=== PATIENT | male | born 1940 | race Caucasian/White ===

== ENCOUNTER 2019-11-22 13:31 | Outpatient (CLI) | payer OTHER, SELFPAY ==
--- NOTE | 2019-11-22 13:37 | CT_ITS ---
WS: [id number] CT ABDOMEN AND PELVIS NONCONTRAST HISTORY: CHRONIC KIDNEY DISEASE TECHNIQUE: Imaging performed through the abdomen and pelvis. Coronal and sagittal reformats are submi tted. All CT scans at [facility] use at least one of these dose optimization techniques: automated exposure control; mA and/or kV adjustment per patient size (includes targeted exams where d ose is matched to clinical indication); or iterative reconstruction. DLP: 1115.26 mGycm COMPARISON: Renal ultrasound 10/06/2019. Lower thorax: Mild dependent changes at the lung bases. Mild enlargement of the heart chambers. Liver: Normal, no mass or intrahepatic dilatation. Gallbladder: Prior cholecystectomy. Pancreas: Normal. Spleen: Normal. Adrenal glands: Normal. Right kidney: Normal size kidney with mild perinephric stranding. No mass, obstruction or calcificati on. Left kidney: Normal size kidney with perinephric stranding. No mass or obstruction. 5.3 mm calcificat ion is nonobstructing in the lower pole. There is an additional calcification measuring 10 x 8 mm in the proximal LEFT ureter. Not causing a significant obstruction at this time. Mild atherosclerosis with no aneurysm. No free fluid, intraperitoneal air or significant lymphadenopathy. GI tract: Normal appendix. There are a few scattered diverticula with no evidence for an acute divert iculitis. Abdominal wall: Intact. Pelvis: Diffuse wall thickening involving the urinary bladder. May be due to cystitis or chronic outl et obstruction. Penile implant with reservoir. No free fluid or adenopathy. Osseous structures: Severe degenerative disc disease at L5-S1. CT/CT abdomen pelvis wo con [id number] IMPRESSION: 1. Proximal LEFT ureteral calcification measures 10 x 8 mm without significant obstruction. Suggest urological consultation as a calcification of the size wi ll likely cause significant obstruction. 2. Bilateral perinephric stranding. 3. Nonobstructing indication lower pole LEFT kidney. 4. Penile reservoir in the RIGHT pelvis corresponds to the fluid collection se en on the recent ultrasound. 5. Diffuse bladder wall thickening probably related to cystitis or chronic out let obstruction. 6. Prior cholecystectomy.
== END 2019-11-22 13:32 | disposition home or self-care (01) ==
LOC: RADWPI 13:36
PROVIDERS: Family Provider Family Medicine; PCP Nurse Practitioner; Referring Provider Nurse Practitioner; Visit Provider Nurse Practitioner
DX: N18.3 Chronic kidney disease, stage 3 (moderate) (principal); N20.2 Calculus of kidney with calculus of ureter; Z90.49 Acquired absence of other specified parts of digestive tract
CPT/HCPCS: 74176

== ENCOUNTER 2019-12-07 07:50 | Outpatient (CLI) | payer OTHER, SELFPAY ==
--- NOTE | 2019-12-07 07:30 | XR_ITS ---
WS: [id number] ABDOMEN: SUPINE FILM HISTORY: LEFT RENAL/URETERAL CALCULUS COMPARISON: 11/22/2019 Prior cholecystectomy. Spondylitic changes in the lumbar spine. Dense calcifications in the splenic a rtery. Right kidney: No renal or ureteral stone identified. Left kidney: Recently described calcification in the proximal LEFT ureter is not definitely identifie d. 2 calcifications now overlie the lower pole of the LEFT kidney with the largest measuring 11.4 mm. The second calcification may be the calcification previously described in the proximal LEFT ureter w hich has gone retrograde. Smaller calcification measures 6.2 mm lower pole LEFT kidney. XR/XR KUB [id number] IMPRESSION: 1. 2 calcifications overlying the lower pole of the LEFT kidney. Suspect the l arger calcification is the calcification recently described in the proximal LEF T ureter which has gone retrograde. Largest calcification is ovoid measuring 11 .4 mm. 2. Small calcification lower pole LEFT kidney 6.2 mm.
== END 2019-12-07 07:51 | disposition home or self-care (01) ==
PROVIDERS: Family Provider Family Medicine; PCP Nurse Practitioner; Visit Provider Urology
DX: N20.2 Calculus of kidney with calculus of ureter (principal)
CPT/HCPCS: 74018; 81001; 87077; 87086; 87186

== ENCOUNTER 2020-06-13 11:45 | Outpatient (CLI) | payer OTHER, SELFPAY ==
--- NOTE | 2020-06-13 11:51 | XRR_ITS ---
PROCEDURE INFORMATION: Exam: XR Abdomen, 1 View Exam date and time: 06/13/2020 12:03 PM Age: 80 years old Clinical indication: Condition or disease; Kidney or ureter condition; Calculus (stone) in ureter; Patient HX: HX ureteral stone. Check up. Previous XR 12/07/19 TECHNIQUE: Imaging protocol: XR of the abdomen. Views: Frontal supine view of the abdomen. 1 View. COMPARISON: CR XR KUB [id number] 12/07/2019 8:21 AM FINDINGS: Gastrointestinal tract: The bowel gas pattern is nonspecific. Air filled large bowel including distal rectal gas. Organs: 4 mm renal calcification overlies the lower pole the left kidney. Calcification of 10 mm adjacent to the transverse process of L3 on the left likely ureteric in origin. Similar appearance was noted on the CT dated 11-22-19. Bones/joints: See Organs finding. XR/XR KUB [id number] IMPRESSION: 1. The bowel gas pattern is nonspecific. Air filled large bowel including distal rectal gas. 2. 4 mm renal calcification overlies the lower pole the left kidney. Calcification of 10 mm adjacent to the transverse process of L3 on the left likely ureteric in origin. Similar appearance was noted on the CT dated 11-22-19.
== END 2020-06-13 11:46 | disposition home or self-care (01) ==
PROVIDERS: Family Provider Family Medicine; PCP Nurse Practitioner; Visit Provider Urology
DX: N20.1 Calculus of ureter (principal); N20.0 Calculus of kidney
CPT/HCPCS: 74018; 81001

== ENCOUNTER 2020-06-21 10:13 | Outpatient (CLI) | payer OTHER, SELFPAY ==
--- NOTE | 2020-06-21 11:45 | US_ITS ---
WS: [id number] ULTRASOUND RENAL TECHNIQUE: Ultrasound examination of both kidneys. CLINICAL INFORMATION: Stones COMPARISON: October 06, 2019 FINDINGS: RIGHT: Right kidney is normal in size and appearance. Echogenicity: Normal. Cortical thickness: 1.6 cm; Normal. Hydronephrosis: None. Perinephric fluid: None. Right kidney measures: 10.4 cm x 5.9 cm x 5.3 cm. LEFT: Left kidney is normal in size and appearance. Echogenicity: Normal. Cortical thickness: 1.6 cm; Normal. Hydronephrosis: None. Perinephric fluid: None. Left kidney measures: 10.8 cm x 5.8 cm x 6.0 cm. Normal visualized aorta. Small bladder diverticulum measuring 2.2 x 1.4 x 1.1 cm. Penile pump reservo ir. US/US renal BI* [id number] IMPRESSION: 1. No hydronephrosis in either kidney. 2. Right penile pump reservoir adjacent to the bladder. 3. Small bladder diverticulum measuring 2.2 x 1.4 x 1.1 cm
--- NOTE | 2020-06-21 12:15 | XR_ITS ---
WS: [id number] KUB, 06/21/2020 Clinical Data: Stones Comparison: KUB, 06/13/2020. Findings: There is a calcification inferior pole of the left kidney. The calcification noted adjacent to the le ft L3 transverse process is not seen on this exam. There is blurring of the bowel from intrinsic alexandru l peristalsis. The patient has a penile artery implants. XR/XR KUB [id number] Impression: 1. Calcification overlying the inferior pole left kidney. 2. Calcification adjacent to the left L3 transverse process not seen on this ex am.
== END 2020-06-21 10:14 | disposition home or self-care (01) ==
PROVIDERS: Family Provider Family Medicine; PCP Nurse Practitioner; Visit Provider Urology
DX: N20.0 Calculus of kidney (principal); Z96.0 Presence of urogenital implants; N32.3 Diverticulum of bladder
CPT/HCPCS: 74018; 76770; 81001

== ENCOUNTER 2020-08-07 12:32 | Outpatient (CLI) | payer OTHER, SELFPAY ==
--- NOTE | 2020-08-07 12:38 | XRR_ITS ---
PROCEDURE INFORMATION: Exam: XR Abdomen, 1 View Exam date and time: 08/07/2020 12:38 PM Age: 80 years old Clinical indication: Condition or disease; Kidney or ureter condition; Calculus (stone) in kidney; Prior surgery; Surgery type: Gb TECHNIQUE: Imaging protocol: XR of the abdomen. Views: Frontal supine view of the abdomen. 1 View. COMPARISON: CR XR KUB [id number] 06/21/2020 10:32 AM FINDINGS: Tubes, catheters and devices: Incidentally noted is evidence of penile implant Gastrointestinal tract: Normal. No bowel dilation. Evidence of cholecystectomy is seen. Organs: There is a calcified urinary tract stone in the central collecting system of the left kidney. This finding measures 6.3 mm. This finding was present on prior examination and at that time measured 12.2 mm. Bones/joints: Mild osteoarthritis lumbar spine XR/XR KUB [id number] IMPRESSION: 1. No acute GI abnormality. 2. Caliceal stone left kidney decreased size since prior 3. Penile implant 4. Cholecystectomy
== END 2020-08-07 12:33 | disposition home or self-care (01) ==
LOC: RAD 12:36
PROVIDERS: PCP Nurse Practitioner; Visit Provider Nurse Practitioner Family
DX: N20.0 Calculus of kidney (principal); Z96.89 Presence of other specified functional implants
CPT/HCPCS: 74018

== ENCOUNTER 2020-10-06 14:04 | Outpatient (CLI) | payer OTHER, SELFPAY ==
--- NOTE | 2020-10-06 14:15 | USCV_ITS ---
Melissa Sivakumar Age: 80 Gender: M : 1940 Exam Date: 10/06/2020 14:35 Ordering Phys: Sudhir Coughlin MD Technologist: Alecia Lema [place] [facility] [place]: [place] BP: / HR: 74 Rhythm: Sinus Technical Quality: MEASUREMENTS (Male / Female) Normal Values 2D ECHO LV Diastolic Diameter PLAX 4.8 cm 4.2 - 5.9 / 3.9 - 5.3 cm LV Systolic Diameter PLAX 2.5 cm IVS Diastolic Thickness 1.3 cm 0.6 - 1.0 / 0.6 - 0.9 cm IVS Systolic Thickness 1.8 cm LVPW Diastolic Thickness 1.0 cm 0.6 - 1.0 / 0.6 - 0.9 cm LVPW Systolic Thickness 2.1 cm LVOT Diameter 2.0 cm LV Ejection Fraction 2D Teich 79.2 % LV Ejection Fraction MOD 2C 65.6 % LV Ejection Fraction 2C AL 66.0 % LA Diameter 4.2 cm LA Width 3.7 cm LA Height 4.8 cm RA Width 3.1 cm RA Height 4.7 cm Aorta at Sinotubular Diameter 3.9 cm M-MODE LV Diastolic Diameter MM 6.8 cm 4.2 - 5.9 / 3.9 - 5.3 cm LV Systolic Diameter MM 3.0 cm LV Ejection Fraction MM Teich 84.8 % IVS Diastolic Thickness MM 1.2 cm 0.6 - 1.0 / 0.6 - 0.9 cm IVS Systolic Thickness MM 2.3 cm LVPW Diastolic Thickness MM 1.2 cm 0.6 - 1.0 / 0.6 - 0.9 cm LVPW Systolic Thickness MM 1.9 cm Aortic Annulus Diameter 3.0 cm LA Ao Ratio MM 1.5 MV E Point Septal Separation 0.7 cm DOPPLER AV Peak Velocity 122.0 cm/s LVOT Peak Velocity 112.0 cm/s AV Area Cont Eq vti 3.0 cm squared AV Area Cont Eq pk 2.9 cm squared MV Peak Velocity 100.0 cm/s MV Area PHT 2.7 cm squared Mitral E to A Ratio 0.7 MV E' Velocity 34.0 cm/s Mitral E to MV E' Ratio 14.0 Mitral E to LV E' Lateral Ratio 15.7 Mitral E to LV E' Septal Ratio 12.6 TR Peak Velocity 80.7 cm/s TR Peak Gradient 2.6 mmHg Right Atrial Pressure 3.0 mmHg Pulmonary Artery Systolic Pressu 5.6 mmHg PV Peak Velocity 79.0 cm/s RV Acceleration Time 0.1 s RV Ejection Time 0.3 s RV AcT/ET 0.4 FINDINGS Left Ventricle Normal left ventricular cavity size. Normal left ventricular systolic function. Left ventricular ejection fraction is estimated at 55 %. Grade I/IV diastolic dysfunction (abnormal relaxation filling pattern), normal to mildly elevated filling pressures. Due to foreshortening of left ventricle, estimation of ejection fraction may not be accurate. Right Ventricle The right ventricle is normal in size and function. Right Atrium The right atrium is normal in size. Left Atrium Moderately increased left atrial size. Mitral Valve Moderately thickened mitral valve. Moderate mitral annular calcification. No mitral valve stenosis. Trace mitral valve regurgitation. Aortic Valve Moderate aortic valve calcification. No aortic valve stenosis. No aortic valve regurgitation. Tricuspid Valve Structurally normal tricuspid valve without significant stenosis or regurgitation. Pulmonary artery systolic pressure is normal. Pulmonic Valve Structurally normal pulmonic valve without significant stenosis. There is no pulmonic regurgitation. Pericardium Normal pericardium without effusion. Aorta Normal ascending aorta dimension. CONCLUSIONS 1-Normal left ventricular cavity size. Normal left ventricular systolic function. Left ventricular ejection fraction is estimated at 55 %. Grade I/IV diastolic dysfunction (abnormal relaxation filling pattern), normal to mildly elevated filling pressures. Due to foreshortening of left ventricle, estimation of ejection fraction may not be accurate. 2-Moderately increased left atrial size. 3-Moderate aortic valve calcification. No aortic valve stenosis. No aortic valve regurgitation. 4-Moderately thickened mitral valve. Moderate mitral annular calcification. No mitral valve stenosis. Trace mitral valve regurgitation. 5-There is no pericardial effusion. 6-Pulmonary artery systolic pressure is within normal limits. 7-Right atrial pressure is around 5 mm of mercury. 8-There are no prior echocardiogram studies to compare. Javier Barrios MD (Electronically Signed) Final Date: 06 October 2020 16:19 S
== END 2020-10-06 14:05 | disposition home or self-care (01) ==
LOC: RAD 14:09
PROVIDERS: PCP Nurse Practitioner; Visit Provider Internal Medicine Critical Care Medicine
DX: I26.99 Other pulmonary embolism without acute cor pulmonale (principal); I08.0 Rheumatic disorders of both mitral and aortic valves
CPT/HCPCS: 93306

== ENCOUNTER 2021-03-22 08:21 | Outpatient (CLI) | payer OTHER, SELFPAY ==
--- NOTE | 2021-03-22 08:32 | XR_ITS ---
WS: [id number] KUB, AP view, 03/22/2021 Clinical Data: stones Comparison: KUB, 08/07/2020. Findings: There is a 1.1 cm calcification overlying the medial aspect of the left kidney. The right kidney is o bscured by overlying bowel gas. There are phleboliths in the true pelvis. There are clips in the right upper quadrant from a cholecystectomy. XR/XR KUB [id number] Impression: No change in left renal calcification.
== END 2021-03-22 08:22 | disposition home or self-care (01) ==
LOC: RAD 08:28
PROVIDERS: PCP Nurse Practitioner; Visit Provider Urology
DX: N20.9 Urinary calculus, unspecified (principal)
CPT/HCPCS: 74018; 81003; 87077; 87086; 87184

== ENCOUNTER 2021-03-30 08:41 | Outpatient (CLI) | payer OTHER, SELFPAY ==
--- NOTE | 2021-03-30 09:15 | CT_ITS ---
WS: [id number] CT ABDOMEN PELVIS TECHNIQUE: Noncontrast CT of the abdomen and pelvis with coronal and sagittal reformatted images. CLINICAL INFORMATION: RENAL STONE COMPARISON: CT November 22, 2019 DLP: 2015.[address] scans at [facility] use at least one of these dose optimization techniques: automat ed exposure control; mA and/or kV adjustment per patient size (includes targeted exams where dose is matched to clinical indication); or iterative reconstruction. FINDINGS: Prior cholecystectomy. Noncontrast liver is normal. Noncontrast spleen is normal. Small esophageal hi atal hernia. Subsegmental atelectasis in the lung bases. Adrenal glands are normal. Fatty atrophy of the pancreas. Splenic artery calcification. Mild bilateral perinephric stranding can be seen with tatum al insufficiency. No obstructing renal or ureteral calculi. Nonobstructing left calyceal tip calculi. Previously described left UPJ calculus has resolved. Left renal calyceal calculus measures 7.3 mm. Normal caliber abdominal aorta. Aortic calcification. Penile reservoir right lower quadrant. Diffuse bladder wall thickening. Enlarged prostate measuring 4 .3 x 5.5 cm. Recommend correlation PSA. Normal sigmoid colon. No evidence of small or large obstructi on. No abdominal or pelvic lymphadenopathy. Disc space narrowing worse L5-S1. CT/CT abdomen pelvis wo con [id number] IMPRESSION: 1. No obstructing renal or ureteral calculi. No hydronephrosis. 2. Previously described left UPJ calculus has resolved. 3. Nonobstructing left calyceal tip calculus measuring 7.3 mm. 4. Prior cholecystectomy. 5. Penile reservoir in right lower quadrant. 6. Enlarged prostate measuring 4.3 x 5.5 cm with bladder outlet obstruction. R ecommend correlation PSA. 7. No other significant changes from previous.
== END 2021-03-30 08:42 | disposition home or self-care (01) ==
LOC: RAD 08:43
PROVIDERS: PCP Nurse Practitioner; Visit Provider Urology
DX: N20.0 Calculus of kidney (principal); N40.0 Benign prostatic hyperplasia without lower urinary tract symptoms; Z90.49 Acquired absence of other specified parts of digestive tract
CPT/HCPCS: 74176; 81003

== ENCOUNTER 2021-04-30 08:55 | Outpatient (CLI) | payer OTHER, SELFPAY ==
--- NOTE | 2021-04-30 09:15 | XRR_ITS ---
PROCEDURE INFORMATION: Exam: XR Abdomen Exam date and time: 04/30/2021 9:15 AM Age: 81 years old Clinical indication: Condition or disease; Kidney or ureter condition; Calculus (stone) in ureter; Additional info: Ureteral calculus TECHNIQUE: Imaging protocol: XR of the abdomen. Views: Frontal supine view of the abdomen. 1 View. COMPARISON: CT abdomen pelvis wo con [id number] 03/30/2021 8:50 AM FINDINGS: Gastrointestinal tract: Prominent stool. Organs: 11 mm calcification overlying the left renal fossa suggesting urolithiasis. Status post cholecystectomy. Vasculature: Multiple subcentimeter pelvic calcifications, the majority of which are believed to be vascular in etiology. If a distal ureteral calculus is of clinical concern, CT may be of benefit for further evaluation. Bones/joints: Degenerative change. XR/XR KUB [id number] IMPRESSION: 11 mm calcification overlying the left renal fossa suggesting urolithiasis.
== END 2021-04-30 08:56 | disposition home or self-care (01) ==
LOC: RAD 08:56
PROVIDERS: PCP Nurse Practitioner; Visit Provider Urology
DX: N20.1 Calculus of ureter (principal)
CPT/HCPCS: 74018; 81003

== ENCOUNTER 2021-06-06 12:56 | Outpatient (CLI) | payer OTHER, SELFPAY ==
--- NOTE | 2021-06-06 13:00 | XR_ITS ---
WS: [id number] XR KUB [id number] REASON FOR EXAM: RENAL CALCULUS FINDINGS: 10 mm calculus overlying the mid to lower left kidney unchanged compared to 04/30/2021. No other significant abnormality of the abdomen is identified. XR/XR KUB [id number] IMPRESSION: Left renal calculus unchanged.
== END 2021-06-06 12:57 | disposition home or self-care (01) ==
LOC: RAD 12:59
PROVIDERS: PCP Nurse Practitioner; Visit Provider Urology
DX: N20.0 Calculus of kidney (principal); R93.9 Diagnostic imaging inconclusive due to excess body fat of patient
CPT/HCPCS: 74018; 81003

== ENCOUNTER 2021-08-27 10:00 | Outpatient (CLI) | payer OTHER, SELFPAY ==
--- NOTE | 2021-08-27 10:11 | MR_ITS ---
WS: [id number] MRI CERVICAL SPINE NONCONTRAST HISTORY: FALL/NECK PAIN COMPARISON: None available. Technique: Multiplanar, multisequence noncontrast imaging of the cervical spine. Mild straightening of the normal cervical lordosis. No marrow edema or acute fractures. Signal within the cord is normal. Mild disc space narrowing and desiccation and osteophytes throughou t cervical spine. Craniocervical junction, C1 and C2 relationship, odontoid process and soft tissues are normal. C2-C3: Small central disc protrusion with no stenosis. C3-C4: Small central disc protrusion and mild osteophytic ridging. Mild bilateral foraminal narrowing . C4-C5: Mild diffuse annular disc bulging and osteophytic ridging. Mild encroachment upon the ventral thecal sac. Mild central with moderate bilateral foraminal stenosis. C5-C6: Diffuse annular disc bulging with a central disc protrusion, osteophytic ridging and mild face t arthritis. Changes are resulting in moderate central and bilateral foraminal stenosis. Central disc protrusion is contacting the ventral thecal sac but no displacement. C6-C7: Diffuse annular disc bulging with central disc protrusion, facet joint arthritis and osteophyt es resulting in moderate central and bilateral foraminal stenosis. C7-T1: Normal. Paraspinal soft tissue are normal. MR/MR cervical spin wo con* [id number] IMPRESSION: 1. No acute cervical spine fracture. 2. Mild to moderate spondylitic changes throughout the cervical spine. 3. Multilevel areas of [id number]-cp-[id number] stenosis due to combination of disc di sease, disc protrusion, osteophytes and facet arthritis. 4. Moderate central and bilateral foraminal stenosis at C5-6 and C6-7. 5. Mild central and moderate bilateral foraminal stenosis at C4-5 with mild bi lateral foraminal stenosis at C3-4.
== END 2021-08-27 10:01 | disposition home or self-care (01) ==
PROVIDERS: PCP Nurse Practitioner; Visit Provider Nurse Practitioner
DX: M48.02 Spinal stenosis, cervical region (principal); W19.XXXA Unspecified fall, initial encounter; M50.30 Other cervical disc degeneration, unspecified cervical region
CPT/HCPCS: 72141

== ENCOUNTER → 2021-11-05 14:23 | Outpatient (BNVA) | payer OTHER, SELFPAY | PROVIDERS: PCP Nurse Practitioner; Referring Provider Nurse Practitioner; Visit Provider Internal Medicine | DX: E11.40 Type 2 diabetes mellitus with diabetic neuropathy, unspecified (principal); E11.65 Type 2 diabetes mellitus with hyperglycemia; E16.0 Drug-induced hypoglycemia without coma; T38.3X5A Adverse effect of insulin and oral hypoglycemic [antidiabetic] drugs, initial encounter; Z79.4 Long term (current) use of insulin | CPT/HCPCS: 99204 ==

== ENCOUNTER → 2021-12-03 10:57 | Outpatient (BNVA) | payer OTHER, SELFPAY | PROVIDERS: PCP Nurse Practitioner; Visit Provider Internal Medicine | DX: E11.65 Type 2 diabetes mellitus with hyperglycemia (principal); E11.319 Type 2 diabetes mellitus with unspecified diabetic retinopathy without macular edema; Z86.73 Personal history of transient ischemic attack (TIA), and cerebral infarction without residual deficits; Z79.4 Long term (current) use of insulin | CPT/HCPCS: 99215 ==

== ENCOUNTER → 2022-02-04 15:17 | Outpatient (BNVA) | payer OTHER, SELFPAY | PROVIDERS: PCP Nurse Practitioner; Visit Provider Internal Medicine | DX: E11.65 Type 2 diabetes mellitus with hyperglycemia (principal); E11.319 Type 2 diabetes mellitus with unspecified diabetic retinopathy without macular edema; E78.2 Mixed hyperlipidemia; Z86.73 Personal history of transient ischemic attack (TIA), and cerebral infarction without residual deficits; Z79.4 Long term (current) use of insulin; Z79.84 Long term (current) use of oral hypoglycemic drugs | CPT/HCPCS: 99214 ==

== ENCOUNTER 2022-02-25 15:12 | Outpatient (CLI) | payer OTHER, SELFPAY ==
--- NOTE | 2022-02-25 15:00 | XR_ITS ---
WS: [id number] Exam: XR KUB [id number] Date/Time of Exam: 02/25/2022 3:21 PM Reason For Exam: LEFT URETERAL CALCULUS Comparison 06/06/2021. Calcifications superimpose both kidneys and likely represent renal calculi. The largest stone measure s about a centimeter superimposes the left kidney. No free air. Mild ileus is noted. Signs of prior c holecystectomy. Nonspecific pelvic calcifications. Bony structures are intact. XR/XR KUB [id number] IMPRESSION: 1. Calcifications superimpose both renal silhouettes and likely represent renal calculi. 2. Mild ileus.
== END 2022-02-25 15:13 | disposition home or self-care (01) ==
LOC: RAD 15:15
PROVIDERS: PCP Nurse Practitioner; Visit Provider Urology
DX: N20.1 Calculus of ureter (principal); K56.7 Ileus, unspecified
CPT/HCPCS: 74018

== ENCOUNTER 2022-04-12 17:28 | Emergency (ER) | payer OTHER, MEDICARE, MEDICAID, SELFPAY ==
[2022-04-12 17:58] VITALS: BP 138/78; PULSE 74; RESP 16; TEMP 36.7; O2SAT 94; BMI 30.1
--- NOTE | 2022-04-12 19:01 | XRR_ITS ---
PROCEDURE INFORMATION: Exam: XR Chest Exam date and time: 04/12/2022 7:09 PM Age: 82 years old Clinical indication: Other: Weakness, lower leg weakness TECHNIQUE: Imaging protocol: XR of the chest. Views: 1 view. COMPARISON: CR Chest 1 [place] [id number] 02/10/2019 1:58 PM FINDINGS: Lungs: Unremarkable. No consolidation. Pleural spaces: Unremarkable. No pleural effusion. No pneumothorax. Heart/Mediastinum: Unremarkable. No cardiomegaly. Bones/joints: Unremarkable. XR/XR chest 1V portable [id number] IMPRESSION: No acute findings.
--- NOTE | 2022-04-12 19:01 | USR_ITS ---
PROCEDURE INFORMATION: Exam: US Duplex Right Lower Extremity Veins, Limited Exam date and time: 04/12/2022 7:56 PM Age: 82 years old Clinical indication: Swelling (edema) of limb; Lower extremity, right; Additional info: R le edema. TECHNIQUE: Imaging protocol: Real-time Duplex ultrasound of the Right Lower Extremity with 2-D bal scale, color Doppler flow and spectral waveform analysis with image documentation. Limited exam was focused on the right lower extremity veins. COMPARISON: US renal BI* [id number] 06/21/2020 10:41 AM FINDINGS: Right deep veins: Unremarkable. The common femoral, femoral, proximal profunda femoral and popliteal veins are patent without thrombus. Normal Doppler waveforms. Normal compressibility and/or augmentation response. Right superficial veins: Unremarkable. Saphenofemoral junction is patent without thrombus. Soft tissues: Unremarkable. US/[place] [id number] IMPRESSION: No evidence of deep vein thrombosis.
--- NOTE | 2022-04-12 19:02 | ECG_ITS ---
[facility] Test Date: 2022-04-12 Pat Name: Sivakumar Torres Department: Room: Gender: Male [employer]: : 1940 Requested By: Chalino Negrete Order Number: [id number] Macho MD: Messi Anne M.D. Measurements Intervals [place] Rate: 72 P: 67 [place]: 189 QRS: -75 QRSD: 123 T: 95 QT: 406 QTc: 446 Interpretive Statements SINUS RHYTHM POSSIBLE RIGHT VENTRICULAR CONDUCTION DELAY [RSR (QR) IN V1/V2] LEFT ANTERIOR FASCICULAR BLOCK [QRS AXIS <= -45, QR IN I, RS IN II] MODERATE ST DEPRESSION [0.05+ mV ST DEPRESSION] ABNORMAL QRS-T ANGLE [QRS-T AXIS DIFFERENCE > 60] Compared to ECG 02/10/2019 16:48:34 Left anterior fascicular block now present ST (T wave) deviation now present Left-axis deviation no longer present Incomplete right bundle-branch block no longer present T-wave abnormality no longer present Electronically Signed On 04-12-2022 22:32:24 CDT by Messi Anne M.D. [email or web address]
[2022-04-12 19:42] LABS: Basophils % 0.5 %; Eosinophils # 0.5 10^3/uL (0.0-0.8); Eosinophils % 5.7 %; Hematocrit 42.9 % (42.0-52.0); Hemoglobin 14.6 g/dL (11.7-16.6); Lymphocytes # 2.1 10^3/uL (0.8-4.8); Lymphocytes % 25.9 %; Mean Corpuscular Hemoglobin 31.2 pg (28.0-34.0); Mean Corpuscular Volume 91.7 fl (80-94); Mean Platelet Volume 10.5 fL (7.4-10.4); Monocytes # 0.7 10^3/uL (0.2-0.9); Monocytes % 9.1 %; Neutrophils # 4.76 10^3/uL (1.8-7.7); Neutrophils % 58.4 %; Nucleated Red Blood Cells % 0 %; Platelet Count 232 10^3/cmm (130-400); Red Blood Count 4.68 10^6/uL (4.1-5.3); Red Cell Distribution Width 12.4 % (12.1-15.1); White Blood Count 8.1 10^3/uL (4.0-10.0)
[2022-04-12 20:01] VITALS: BP 159/98; PULSE 73; RESP 17; O2SAT 94
[2022-04-12 20:02] LABS: Add Urine Microscopic? YES; Bilirubin Urine Neg (Negative); Blood Urine 3+ (Negative); Glucose Urine UA 2+ (Normal); Ketones Urine Negative (Negative); Leukocyte Esterase Urine 2+ (Negative); Nitrate Urine Negative (Negative); Protein Urine 1+ (Negative); Specific Gravity, Urine 1.015 (1.005-1.030); Urine Appearance SL Hazy (CLEAR); Urine Color Yellow (Yellow); Urobilinogen Urine Norm (Negative); pH Urine 5 (5-7)
[2022-04-12 20:03] LABS: Add Urine Culture? Yes; Bacteria Urine 4+ /hpf; RBC Urine >100 /hpf (0-2); WBC Urine >100 /hpf (0-5)
[2022-04-12 20:13] LABS: INR 1.01 (0.8-1.2)
[2022-04-12 20:14] LABS: Partial Thromboplastin Time 28.8 SECONDS (23.9-36.7)
[2022-04-12 20:16] LABS: Alanine Aminotransferase 8 U/L (0-41); Albumin Level 4.2 g/dL (3.5-5.2); Alkaline Phosphatase 82 IU/L (40-130); Aspartate Amino Transferase 14 U/L (0-40); Blood Urea Nitrogen 28 mg/dL (8-23); Calcium 9.5 mg/dL (8.5-10.5); Carbon Dioxide 25 mmol/L (22-29); Chloride 102 mmol/L (98-107); Globulin 2.5 g/dL (1.3-4.6); Glucose 187 mg/dL (65-115); Magnesium 2.1 mg/dL (1.7-2.3); NT Pro B Type Natriuretic Pept 275 pg/mL (0-450); Osmolality Calculated 296 mOsm/kg (285-295); Phosphorus 3.3 mg/dL (2.5-4.5); Sodium 138 mmol/L (136-145); Total Bilirubin 0.3 mg/dL (0.15-1.2); Total Protein 6.7 g/dL (6.6-8.7)
[2022-04-12 20:21] LABS: Anion Gap 15.2 (5-19); Potassium 4.2 mmol/L (3.5-5.1)
--- NOTE | 2022-04-12 20:25 | W.ED.WEAKNES ---
HPI - Weakness General: Chief complaint: Weakness Stated complaint: leg weakness/numbness & swollen right leg Time Seen by Provider: 04/12/22 18:48 Source: patient and family History of Present Illness: 82-year-old gentleman who lives at home alone. He has some mild dementia. His daughter brings him in with generalized weakness and right lower extremity swelling. He has nurses aides, but they did not seem to notice the right lower extremity swelling. He is complaining of some pain, but not a lot of pain to the right lower extremity. He does have a history of pulmonary embolism. He is on 2.5 mg of apixaban twice daily. He is able to walk, but is unsteady on his feet. He self caths for urine. They deny fever, respiratory symptoms, significant chest pain, or symptoms otherwise MD Complaint: generalized weakness Onset (ago): day(s) Duration: constant Location: generalized and RLE Migration: none Severity: moderate Quality: other Relieving factors: none Exacerbating factors: none Associated symptoms: Denies chest pain, chills, confusion, decreased appetite, fever(s), headache(s), short of breath or vomiting Review of Systems Const: Denies: fever(s) or chills Card: Denies: chest pain Resp: Denies: dyspnea GI: Denies: vomiting Neuro: Denies: headache(s) or confusion PFS ED PFSH: Medical History Bilateral pulmonary embolism Intermittent self-catheterization of bladder Lower urinary tract symptoms Urinary incontinence Urinary retention Surgical History History of back surgery History of shoulder surgery S/P cholecystectomy S/P transurethral resection of prostate Family History Family/Other Diabetes CAD (coronary artery disease) Father , at age 68 Heart disease Mother , at age 44 No problems noted. Social History Smoking and tobacco status: never smoked Second hand smoke exposure: No Smoking risk assessment/counseling performed?: Yes Alcohol intake: former Lives independently: Yes Household members: none Housing: House Marital status: service: Yes Current occupational status: retired Pets and animals: No History of recent travel: No Current gender identity: Male Physical Exam Const: GENERAL APPEARANCE: cooperative and frail appearing HENMT: COMMON NORMALS: normocephalic, atraumatic and Normal external nose present HEAD & SCALP: normocephalic and atraumatic FACE & SINUS: normal facial exam and face symmetric NOSE: Normal external nose present Eye: COMMON NORMALS: Equal, round and reactive pupils present and EOMs intact bilaterally PUPIL: Yes Equal, round and reactive pupils present Neck/C-Spine: GENERAL: Yes trachea midline Chest: CHEST: Yes Symmetrical chest wall rise Resp: COMMON NORMALS: normal respiratory effort, No use of accessory muscles and clear to auscultation bilaterally AUSCULTATION: clear to auscultation bilaterally Cardio: COMMON NORMALS: regular rate and regular rhythm RATE: regular rate RHYTHM: regular rhythm GI: COMMON NORMALS: Normal to inspection, nondistended, normoactive bowel sounds present, Soft to palpation and non-tender PALPATION: Yes Soft to palpation Extremity: NARRATIVE EXTREMITY EXAM: Exam the right lower extremity reveals significant swelling compared to the left. There is mild warmth. There is no redness. Neuro: VLAD COMA SCALE: document GCS findings [place] coma scale eye opening: Spontaneous Vlad coma scale verbal response: Orientated Vlad coma scale motor response: Obey commands [place] coma scale total score: 15 GAIT: Yes Shuffling gait present MOTOR EXAM: Pronator motor function not present Course Vital Signs: Vital signs: Vital Signs Temperature 98.1 F 04/12/22 17:58 Pulse Rate 76 04/12/22 21:31 Respiratory Rate 18 04/12/22 21:31 Blood Pressure 166/96 04/12/22 21:31 Pulse Oximetry 94 04/12/22 21:31 MDM - Weakness Medical Decision Making US for DVT is negative. Vitals are goood. Patient is able to walk in the ER with minimal assist. Likely vascular insufficiency. Urine + for UTI. Will treat. Likely a cause of generalized weakness. Discussed deconditioning with family. They will follow up for potential home rehab as well as further care. Lab Data : 04/12/22 19:30 04/12/22 19:30 Radiology Impressions Chest X-Ray 04/12/22 19:01 IMPRESSION: No acute findings. Venous Duplex 04/12/22 19:01 IMPRESSION: No evidence of deep vein thrombosis. Laboratory Results WBC 8.1 10^3/uL (4.0-10.0) 04/12/22 19: RBC 4.68 10^6/uL (4.1-5.3) 04/12/22 19: Hgb 14.6 g/dL (11.7-16.6) 04/12/22 19: Hct 42.9 % (42.0-52.0) 04/12/22: MCV 91.7 fl (80-94) 04/12/22 19: MCH 31.2 pg (28.0-34.0) 04/12/22: MCHC 34.0 g/dL (30.0-36.0) 04/12/22: RDW 12.4 % (12.1-15.1) 04/12/22: Plt Count 232 10^3/cmm (130-400) 04/12/22: MPV 10.5 fL (7.4-10.4) H 04/12/22 19: Neut % (Auto) 58.4 % 04/12/22 19: Lymph % (Auto) 25.9 % 04/12/22 19: [place] % (Auto) 9.1 % 04/12/22 19: Eos % (Auto) 5.7 % 04/12/22: Baso % (Auto) 0.5 % 04/12/22: Neut # (Auto) 4.76 10^3/uL (1.8-7.7) 04/12/22: Lymph # (Auto) 2.1 10^3/uL (0.8-4.8) 04/12/22: [place] # (Auto) 0.7 10^3/uL (0.2-0.9) 04/12/22: Eos # (Auto) 0.5 10^3/uL (0.0-0.8) 04/12/22 19: Baso # (Auto) 0.0 10^3/uL (0.0-0.1) 04/12/22: Nucleated RBC % (auto) 0 % 04/12/22: Nucleated RBCs # 0.0 /100WBC 06/03/22 19:30 PT 13.60 SECONDS (12.1-14.9) 04/12/22 19:30 INR 1.01 (0.8-1.2) 04/12/22 19:30 APTT 28.8 SECONDS (23.9-36.7) 04/12/22 19:30 D-Dimer 1.90 ug/mIFEU (0-0.59) H 04/12/22 19:30 Sodium 138 mmol/L (136-145) 04/12/22 19:30 Potassium 4.2 mmol/L (3.5-5.1) 04/12/22 19:30 Chloride 102 mmol/L (98-107) 04/12/22 19:30 Carbon Dioxide 25 mmol/L (22-29) 04/12/22:30 Anion Gap 15.2 (5-19) 04/12/22:30 BUN 28 mg/dL (8-23) H 04/12/22 19:30 Creatinine 1.3 mg/dL (0.7-1.2) H 04/12/22 19:30 GFR Calculation Not Reportable 04/12/22:30 Glucose 187 mg/dL (65-115) H 04/12/22 19:30 Calculated Osmolality 296 mOsm/kg (285-295) H 04/12/22:30 Calcium 9.5 mg/dL (8.5-10.5) 04/12/22:30 Phosphorus 3.3 mg/dL (2.5-4.5) 04/12/22: Magnesium 2.1 mg/dL (1.7-2.3) 04/12/22 19:30 Total Bilirubin 0.3 mg/dL (0.15-1.2) 04/12/22 19:30 AST 14 U/L (0-40) 04/12/22 19: ALT 8 U/L (0-41) 04/12/22 19:30 Alkaline Phosphatase 82 IU/L (40-130) 04/12/22 19:30 C-Reactive Protein 3.0 mg/L (0.0-4.9) 04/12/22 19:30 NT-Pro-B Natriuret Pep 275 pg/mL (0-450) 04/12/22 19:30 Total Protein 6.7 g/dL (6.6-8.7) 04/12/22 19:30 Albumin 4.2 g/dL (3.5-5.2) 04/12/22 19:30 Globulin 2.5 g/dL (1.3-4.6) 04/12/22 19:30 Urine Color Yellow (Yellow) 04/12/22 19:50 Urine Appearance Sl hazy (CLEAR) 04/12/22 19:50 Urine pH 5 (5-7) 04/12/22 19:50 Ur Specific [place] 1.015 (1.005-1.030) 04/12/22 19:50 Urine Protein 1+ (Negative) H 04/12/22 19:50 Urine Glucose (UA) 2+ (Normal) H 04/12/22 19:50 Urine Ketones Negative (Negative) 04/12/22 19:50 Urine Blood 3+ (Negative) H 04/12/22 19:50 Urine Nitrate Negative (Negative) 04/12/22 19:50 Urine Bilirubin Neg (Negative) 04/12/22 19:50 Urine Urobilinogen Norm mg/dL (Negative) 04/12/22 19:50 Ur Leukocyte Esterase 2+ (Negative) H 04/12/22 19:50 Urine RBC >100 /hpf (0-2) H 04/12/22 19:50 Urine WBC >100 /hpf (0-5) H 04/12/22 19:50 Ur Squamous Epith Cells 5-10 /hpf (0-5) H 04/12/22 19:50 Amorphous Sediment Not Reportable 04/12/22 19:50 Urine Bacteria 4+ /hpf (NONE) H 04/12/22 19:50 Discharge Plan Discharge Patient Disposition: Home Clinical Impression: Acute UTI, Insufficiency, vascular Condition: Stable Prescriptions: New cefdinir 300 mg capsule 300 mg PO BID Qty: 14 0RF Lasix 20 mg tablet 20 mg PO DAILY Qty: 5 0RF No Action albuterol sulfate 90 mcg/actuation HFA aerosol inhaler 2 puff INHALATION Q6H PRN0RF cyanocobalamin (vitamin B-12) 1,000 mcg capsule 1,000 mcg PO DAILY 0RF Eliquis 2.5 mg tablet 2.5 mg PO BID 0RF gabapentin 600 mg tablet 600 mg PO BID 0RF Rx Instructions: 2 TABLETS BID Lactobacillus acidophilus 1 billion cell capsule 1,000 mmu cells PO DAILY 0RF lisinopril 30 mg tablet 30 mg PO DAILY 0RF methenamine hippurate 1 gram tablet 1 gm PO BID 0RF ascorbic acid (vitamin C) 500 mg capsule PO BID 0RF Rx Instructions: 500MG BID memantine 5 mg tablet 5 mg PO QDAY 0RF oxybutynin chloride 5 mg tablet 5 mg PO BID 0RF Rx Instructions: PT has NOT started taking yet. Levemir FlexTouch U-100 Insuln 100 unit/mL (3 mL) insulin pen 50 unit SUBCUT DAILY Qty: 15 3RF Rx Instructions: Inject 50 units subcut daily. (DME) pen needle, diabetic 32 gauge x 5/32 needle See Rx Instructions .Route Qty: 100 3RF Rx Instructions: As directed metformin 500 mg tablet extended release 24 hr 500 mg PO BID Qty: 180 3RF Rx Instructions: Take one tablet by mouth twice a day. (DME) Dexcom G6 Owner Oral Surgeon Misc See Rx Instructions .Route Qty: 1 0RF Rx Instructions: Check BS 4-6 times a day. (DME) Dexcom G6 Sensor Device See Rx Instructions .Route Qty: 3 3RF Rx Instructions: Change every 10 days. (DME) Dexcom G6 Transmitter Device See Rx Instructions .Route Qty: 1 3RF Rx Instructions: Change every 90 days. Discharge Orders: Discharge ED (Routine); Ordered 04/12/22 Ordered By: Chalino Chase Referrals: Gracie Burnham, DIRECTOR BUSINESS MANAGEMENT [Primary Care Provider] - 4-7 days Patient Instructions: Urinary Tract Infection in Men (ED) Activity Restrictions/Additional Instructions: Medications as directed. Use your support stockings, and elevate your legs often. Return for fever, worsening swelling despite treatment, mental status changes, any other concerning symptoms Coding Level of Care Code ED Accounts Adjustable Clerk for Fei Fwd Exam Comprehensive
[2022-04-12 21:31] VITALS: BP 166/96; PULSE 76; RESP 18; O2SAT 94
[2022-04-12] MEDS: cefdinir 300 MG CAPSULE PO (21:54)
[2022-04-12] MEDS: FUROsemide 20 mg Tablet PO (21:54)
== END 2022-04-12 22:01 | disposition home or self-care (01) ==
PROVIDERS: Emergency Provider Emergency Medicine; PCP Nurse Practitioner
DX: N39.0 Urinary tract infection, site not specified (principal); I87.2 Venous insufficiency (chronic) (peripheral); M79.89 Other specified soft tissue disorders; R60.0 Localized edema; Z86.711 Personal history of pulmonary embolism; Z79.01 Long term (current) use of anticoagulants
CPT/HCPCS: 71045; 80053; 81001; 83735; 83880; 84100; 85025; 85378; 85610; 85730; 86140; 87077; 87086; 87186; 93005; 93971; 99284

== ENCOUNTER → 2022-05-06 13:28 | Outpatient (BNVA) | payer OTHER, SELFPAY | PROVIDERS: PCP Nurse Practitioner; Visit Provider Internal Medicine | DX: E11.65 Type 2 diabetes mellitus with hyperglycemia (principal); E11.319 Type 2 diabetes mellitus with unspecified diabetic retinopathy without macular edema; Z86.73 Personal history of transient ischemic attack (TIA), and cerebral infarction without residual deficits; Z87.440 Personal history of urinary (tract) infections; Z79.4 Long term (current) use of insulin; Z79.84 Long term (current) use of oral hypoglycemic drugs | CPT/HCPCS: 99214 ==

== ENCOUNTER → 2022-08-19 10:38 | Outpatient (BNVA) | payer OTHER, SELFPAY | PROVIDERS: PCP Nurse Practitioner; Visit Provider Internal Medicine | DX: E11.65 Type 2 diabetes mellitus with hyperglycemia (principal); E11.319 Type 2 diabetes mellitus with unspecified diabetic retinopathy without macular edema; E78.2 Mixed hyperlipidemia; Z86.73 Personal history of transient ischemic attack (TIA), and cerebral infarction without residual deficits; Z79.4 Long term (current) use of insulin; Z79.84 Long term (current) use of oral hypoglycemic drugs | CPT/HCPCS: 99214 ==

== ENCOUNTER 2022-08-26 11:58 | Outpatient (CLI) | payer OTHER, SELFPAY ==
--- NOTE | 2022-08-26 12:43 | XR_ITS ---
WS: [id number] KUB, AP view, 08/26/2022. Clinical Data: Ureteral Calculus Comparison: KUB, 02/25/2022. Findings: No abnormal intraabdominal masses are seen. There is no dilatated small bowel or evidence of obstruct ion. There are calcifications overlying both kidneys unchanged. There is fecal material obscuring detail o vladimir the left kidney. There are clips in the right upper quadrant and splenic artery calcifications in the left upper quadrant. XR/XR KUB [id number] Impression: Bilateral renal calcifications.
== END 2022-08-26 11:59 | disposition home or self-care (01) ==
PROVIDERS: PCP Nurse Practitioner; Visit Provider Urology
DX: N20.1 Calculus of ureter (principal); N20.0 Calculus of kidney; N20.9 Urinary calculus, unspecified; R33.9 Retention of urine, unspecified; N39.42 Incontinence without sensory awareness
CPT/HCPCS: 74018; 99213

== ENCOUNTER → 2022-08-27 08:08 | Outpatient (BNVA) | payer OTHER, SELFPAY | PROVIDERS: PCP Nurse Practitioner; Visit Provider Podiatrist Foot & Ankle Surgery | DX: E11.8 Type 2 diabetes mellitus with unspecified complications (principal); E11.65 Type 2 diabetes mellitus with hyperglycemia; L60.3 Nail dystrophy; M20.41 Other hammer toe(s) (acquired), right foot; M20.42 Other hammer toe(s) (acquired), left foot; M21.41 Flat foot [pes planus] (acquired), right foot; M21.42 Flat foot [pes planus] (acquired), left foot; Z79.84 Long term (current) use of oral hypoglycemic drugs; Z79.4 Long term (current) use of insulin | CPT/HCPCS: 11721; 99203; 99204 ==

== ENCOUNTER 2022-11-25 12:54 | Outpatient (CLI) | payer OTHER, SELFPAY ==
--- NOTE | 2022-11-25 | CT_ITS ---
WS: [id number] CT HEAD TECHNIQUE: Noncontrast CT of the head obtained from the skullbase to the vertex. CLINICAL INFORMATION: DEMENTIA, SCREENING FOR NEUROLOGY COMPARISON: None. DLP: 1034.[address] scans at [facility] [place] use at least one of these dose optimization techniques: automated e xposure control; mA and/or kV adjustment per patient size (includes targeted exams where dose is matc hed to clinical indication); or iterative reconstruction. FINDINGS: No evidence of intracranial hemorrhage or mass effect. Ventricular system and basal cisterns are frey nt. Moderate to advanced small vessel changes with moderate parenchymal volume loss. Chronic lacunar infarct LEFT basal ganglia. Intracranial vascular calcification. No extra-axial fluid collections. No evidence of mass or mass effect. Normal posterior nasopharynx. Paranasal sinuses and mastoid air cells are well aerated. .Normal visua lized soft tissues. CT/CT head wo con* [id number] IMPRESSION: 1. No evidence of intracranial hemorrhage or mass effect. 2. Moderate to advanced small vessel changes with moderate parenchymal volume loss progressed since 2019. 3. Chronic lacunar infarct LEFT basal ganglia. 4. Intracranial vascular calcification. 5. No acute intracranial findings.
== END 2022-11-25 12:55 | disposition home or self-care (01) ==
LOC: RAD 12:54
PROVIDERS: PCP Nurse Practitioner; Visit Provider Nurse Practitioner
DX: Z13.89 Encounter for screening for other disorder (principal); F03.90 Unspecified dementia, unspecified severity, without behavioral disturbance, psychotic disturbance, mood disturbance, and anxiety; I63.81 Other cerebral infarction due to occlusion or stenosis of small artery
CPT/HCPCS: 70450

== ENCOUNTER → 2023-01-06 12:56 | Outpatient (BNVA) | payer OTHER, SELFPAY | PROVIDERS: PCP Nurse Practitioner; Visit Provider Internal Medicine | DX: E11.319 Type 2 diabetes mellitus with unspecified diabetic retinopathy without macular edema (principal); E11.65 Type 2 diabetes mellitus with hyperglycemia; E78.2 Mixed hyperlipidemia; Z86.73 Personal history of transient ischemic attack (TIA), and cerebral infarction without residual deficits; Z79.4 Long term (current) use of insulin; Z79.84 Long term (current) use of oral hypoglycemic drugs | CPT/HCPCS: 99214 ==

== ENCOUNTER 2023-01-20 15:10 | Emergency (ER) | payer OTHER, SELFPAY ==
[2023-01-20] VITALS (26 sets, daily range): BP systolic 135–176; BP diastolic 69–101; PULSE 77; RESP 16; TEMP 36.3; O2SAT 92–100
--- NOTE | 2023-01-20 17:01 | ED_ITS ---
HPI - Extremity Problem General: Chief complaint: Extremity Problem,Nontraumatic Stated complaint: Right leg swelling and pain Time Seen by Provider: 01/20/23 17:00 Source: patient Mode of arrival: ambulatory History of Present Illness: 82-year-old male presents to the emergency room at the direction of the [facility]. He is reporting discomfort in his legs. Is difficult to tell from him his family Evitts with him says his left leg is swollen nursing had put in the triage note that his lower right leg with swelling and pain on exam there is neither warmth nor swelling to either legs nor is her any pain. Patient has a history of a previous PE documented in 2019 there was no accompanying venous duplex of the lower extremities at that time but done shortly thereafter was negative. He has been on Eliquis since. He tells me he still taking his Eliquis regularly. Currently taking 2.5 p.o. twice daily denies any chest pain or shortness of breath Location: left, right and lower extremity Relieving factors: nothing Exacerbating factors: nothing Associated symptoms: Deny chest pain, fever(s) or rash Review of Systems Const: Denies: fever(s), chills, body aches, change in appetite, fatigue or malaise ENMT: Denies: throat pain, ear or mastoid pain, nasal discharge or nasal congestion Card: Denies: chest pain, edema, dyspnea on exertion or orthopnea Resp: Denies: dyspnea, productive cough or non-productive cough GI: Denies: abdominal pain, nausea, vomiting, hematemesis, coffee ground emesis, diarrhea, constipation, bloating, hematochezia or melena : Denies: flank pain, dysuria, urinary frequency or urinary urgency Skin/Breast: Denies: rash or pruritus PFSH ED PFSH: Medical History Bilateral pulmonary embolism Intermittent self-catheterization of bladder Lower urinary tract symptoms Urinary incontinence Urinary retention Urolithiasis Multi stone former. Chronic LLP stone measuring about 11 mm. Surgical History History of back surgery History of shoulder surgery S/P cholecystectomy S/P transurethral resection of prostate Family History Family/Other Diabetes CAD (coronary artery disease) Father , at age 68 Heart disease Mother , at age 44 No problems noted. Social History Smoking and tobacco status: never smoked Second hand smoke exposure: No Smoking risk assessment/counseling performed?: Yes Alcohol intake: former Lives independently: Yes Household members: none Housing: House Marital status: service: Yes Current occupational status: retired Pets and animals: No Current gender identity: Male Physical Exam Const: COMMON NORMALS: no acute distress GENERAL APPEARANCE: cooperative and comfortable ORIENTATION/CONSCIOUSNESS: Yes awake, Yes oriented to person, Yes oriented to place and Yes oriented to time HENMT: COMMON NORMALS: normocephalic, atraumatic and hearing grossly normal bilaterally HEAD & SCALP: normocephalic and atraumatic Resp: COMMON NORMALS: normal respiratory effort, No retractions, No use of accessory muscles and clear to auscultation bilaterally AUSCULTATION: clear to auscultation bilaterally Cardio: COMMON NORMALS: regular rate, regular rhythm and No murmurs present (Cardio) RATE: regular rate RHYTHM: regular rhythm GI: COMMON NORMALS: Soft to palpation and No hepatosplenomegaly present AUSCULTATION: Yes normoactive bowel sounds PALPATION: Yes Soft to palpation, No Tenderness to palpation present (GI), No Guarding due to palpation present (GI) and Yes No hepatosplenomegaly present Extremity: COMMON NORMALS: normal to inspection, capillary refill normal, no clubbing, cyanosis or edema, no calf tenderness and no pedal edema OTHER: No pain in the extremities no pitting edema or significant swelling is noted. At most it may be slightly warm to the touch in the posterior calf on the right. No palpable or exquisitely tender superficial varices are noted. 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 No sup erficial thrombophlebitis on either exam or noted on ultrasound. Recommend that he continue his current Eliquis no other changes. We did note on his labs that his creatinine has climbed significantly in the last year. Recommend decreasing his lisinopril to 20 mg daily and add amlodipine 2.5 mg daily. He has an upcoming appointment with nephrology review with nephrology at that time. Did give him 500 normal saline IV prior to discharge. Continue all other medications as previously prescribed. Medical Records I reviewed the patient's medical records. Lab Data I reviewed the patient's lab results. 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 Laboratory Results WBC 6.5 10^3/uL (4.0-10.0) 01/20/23 17: RBC 4.97 10^6/uL (4.1-5.3) 01/20/23 17: Hgb 14.8 g/dL (11.7-16.6) 01/20/23 17:23 Hct 46.9 % (42.0-52.0) 01/20/23 17: MCV 94.4 fl (80-94) H 01/20/23 17: MCH 29.8 pg (28.0-34.0) 01/20/23 17: MCHC 31.6 g/dL (30.0-36.0) 01/20/23 17: RDW 12.3 % (12.1-15.1) 01/20/23: Plt Count 210 10^3/cmm (130-400) 01/20/23 17: MPV 9.8 fL (7.4-10.4) 01/20/23 17: Neut % (Auto) 57.7 % 01/20/23 17: Lymph % (Auto) 27.8 % 01/20/23 17: [place] % (Auto) 9.1 % 01/20/23 17: Eos % (Auto) 4.3 % 01/20/23 17: Baso % (Auto) 0.8 % 01/20/23 17: Neut # (Auto) 3.76 10^3/uL (1.8-7.7) 01/20/23 17: Lymph # (Auto) 1.8 10^3/uL (0.8-4.8) 01/20/23 17: [place] # (Auto) 0.6 10^3/uL (0.2-0.9) 01/20/23: Eos # (Auto) 0.3 10^3/uL (0.0-0.8) 01/20/23: Baso # (Auto) 0.1 10^3/uL (0.0-0.1) 01/20/23: Nucleated RBC % (auto) 0 % 01/20/23: Nucleated RBCs # 0.0 /100WBC 01/20/23 17: Sodium 137 mmol/L (136-145) 01/20/23 17: Potassium 5.3 mmol/L (3.5-5.1) H 01/20/23: Chloride 102 mmol/L (98-107) 01/20/23: Carbon Dioxide 25 mmol/L (22-29) 01/20/23: Anion Gap 15.3 (5-19) 01/20/23 17: BUN 31 mg/dL (8-23) H 01/20/23: Creatinine 1.8 mg/dL (0.7-1.2) H 01/20/23 17: GFR Calculation Not Reportable 01/20/23: Glucose 188 mg/dL (65-115) H 01/20/23: Calculated Osmolality 296 mOsm/kg (285-295) H 01/20/23: Calcium 9.5 mg/dL (8.5-10.5) 01/20/23 17: Total Bilirubin 0.2 mg/dL (0.15-1.2) 01/20/23 17: AST 13 U/L (0-40) 01/20/23 17: ALT 10 U/L (0-41) 01/20/23 17:23 Alkaline Phosphatase 79 U/L (40-130) 01/20/23 17:23 Total Protein 6.7 g/dL (6.6-8.7) 01/20/23 17:23 Albumin 3.7 g/dL (3.5-5.2) 01/20/23 17:23 Globulin 3.0 g/dL (1.3-4.6) 01/20/23 17:23 Discharge Plan Discharge Patient Disposition: Home Clinical Impression: DVT (deep venous thrombosis), Hx pulmonary embolism, Chronic kidney disease (CKD) Condition: Stable Prescriptions: New lisinopril 20 mg tablet 20 mg PO DAILY Qty: 30 0RF amlodipine 2.5 mg tablet 2.5 mg PO DAILY Qty: 30 0RF Discontinued lisinopril 30 mg tablet 30 mg PO DAILY No Action albuterol sulfate 90 mcg/actuation HFA aerosol inhaler 2 puff INHALATION Q6H PRN cyanocobalamin (vitamin B-12) 1,000 mcg capsule 1,000 mcg PO DAILY Eliquis 2.5 mg tablet 2.5 mg PO BID gabapentin 600 mg tablet 600 mg PO BID Rx Instructions: 2 TABLETS BID Lactobacillus acidophilus 1 billion cell capsule 1,000 mmu cells PO DAILY methenamine hippurate 1 gram tablet 1 gm PO BID ascorbic acid (vitamin C) 500 mg capsule PO BID Rx Instructions: 500MG BID memantine 5 mg tablet 5 mg PO QDAY oxybutynin chloride 5 mg tablet 5 mg PO BID Rx Instructions: PT has NOT started taking yet. cholecalciferol (vitamin D3) 25 mcg (1,000 unit) capsule 25 mcg PO DAILY omega 3-emo-frz-fish oil [Fish Oil] 300-1,000 mg capsule 1 cap PO DAILY amitriptyline 10 mg tablet 10 mg PO DAILY lidocaine 5 % cream 1 applic topical BID PRN multivitamin Tablet 1 tab PO DAILY (DME) FreeStyle [place] 2 Sensor Kit See Rx Instructions .ROUTE .MEDSUPPLY Qty: 6 2RF Rx Instructions: change every 14 days metformin 500 mg tablet extended release 24 hr 500 mg PO BID Qty: 180 3RF Rx Instructions: Take one tablet by mouth twice a day. (DME) Dexcom G6 Library Manager Misc See Rx Instructions .Route Qty: 1 0RF Rx Instructions: Check BS 4-6 times a day. (DME) Dexcom G6 Sensor Device See Rx Instructions .Route Qty: 3 3RF Rx Instructions: Change every 10 days. (DME) Dexcom G6 Transmitter Device See Rx Instructions .Route Qty: 1 3RF Rx Instructions: Change every 90 days. Levemir U-100 Insulin 100 unit/mL solution 50 unit SUBCUT DAILY Qty: 60 3RF Rx Instructions: Inject 50 units subcut once a day. ezetimibe [Zetia] 10 mg tablet 10 mg PO DAILY Qty: 90 0RF Rx Instructions: Take 1 tablet daily (DME) insulin syringe-needle U-100 1 mL 31 gauge x 5/16 syringe See Rx Instructions .ROUTE .COMPLEX Qty: 100 0RF Dose Instruction: USE DIRECTED DAILY Rx Instructions: USE DIRECTED DAILY Levemir FlexTouch U-100 Insuln 100 unit/mL (3 mL) insulin pen 50 unit SUBCUT DAILY Qty: 15 3RF Rx Instructions: Inject 50 units subcut daily. ketoconazole 2 % cream 1 applic topical BID Qty: 30 6RF Rx Instructions: Apply to red, scaly areas on face 1-2 times daily ketoconazole 2 % shampoo 1 applic topical .2x weekly Qty: 120 6RF Rx Instructions: Lather into scalp 2-3 times weekly. Allow to sit on scalp for 5 minutes before rinsing. cefdinir 300 mg capsule 300 mg PO BID Qty: 14 0RF Lasix 20 mg tablet 20 mg PO DAILY Qty: 5 0RF Discharge Orders: Discharge ED (Routine); Ordered 01/20/23 Ordered By: Justin Castellon Referrals: Gracie Burnham, HOSPICE SPIRITUAL CARE COORDINATOR [Primary Care Provider] - Discharge Diet: Usual diet Discharge Activity: Increase activity as tolerated Patient Instructions: Opioid Safety, Pain Management Activity Restrictions/Additional Instructions: You were seen today for question of swelling in her leg. There is a visualized remnant of an old clot but no apparent new clot would recommend you continue the current Eliquis follow-up with your doctor. Incidental notation on the labs done today your creatinine has been increasing would recommend that you decrease your lisinopril to 20 mg a day add amlodipine 2.5 daily and follow-up with your primary care doctor to recheck your creatinine sometime in the next 1 to 2 weeks Coding Level of Care Code ED Dry Box Tender for Fei Wyatt
--- NOTE | 2023-01-20 17:09 | PC.NURSE ---
While at bedside, pt started to seize. Pt was unable to respond to verbal stimuli, but was able to help this nurse roll him to his side while seizing. Seizure lasted approximately 1 minute. After seizure, pt was AAOx4.
--- NOTE | 2023-01-20 17:24 | USR_ITS ---
PROCEDURE INFORMATION: Exam: US Duplex Lower Extremity Veins, Bilateral Exam date and time: 01/20/2023 5:38 PM Age: 82 years old Clinical indication: Pain; Leg, lower; Bilateral; Additional info: Pain swelling TECHNIQUE: Imaging protocol: Real-time duplex ultrasound of the bilateral extremities with 2-D bal scale, color Doppler flow and spectral waveform analysis including responses to compression and other maneuvers (when performed) with image documentation. Complete exam focused on the lower extremity veins. 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 Right superficial veins: Saphenofemoral junction is patent without thrombus. Left deep veins: Unremarkable. The common femoral, femoral, proximal profunda femoral and popliteal veins are patent without thrombus. Normal Doppler waveforms. Normal compressibility and/or augmentation response. Left superficial veins: Saphenofemoral junction is patent without thrombus. Soft tissues: Unremarkable. 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
[2023-01-20 17:32] LABS: Basophils # 0.1 10^3/uL (0.0-0.1); Basophils % 0.8 %; Eosinophils # 0.3 10^3/uL (0.0-0.8); Eosinophils % 4.3 %; Hematocrit 46.9 % (42.0-52.0); Hemoglobin 14.8 g/dL (11.7-16.6); Lymphocytes # 1.8 10^3/uL (0.8-4.8); Lymphocytes % 27.8 %; Mean Corpuscular HGB Conc 31.6 g/dL (30.0-36.0); Mean Corpuscular Hemoglobin 29.8 pg (28.0-34.0); Mean Corpuscular Volume 94.4 fl (80-94); Mean Platelet Volume 9.8 fL (7.4-10.4); Monocytes # 0.6 10^3/uL (0.2-0.9); Monocytes % 9.1 %; Neutrophils # 3.76 10^3/uL (1.8-7.7); Neutrophils % 57.7 %; Nucleated Red Blood Cells % 0 %; Platelet Count 210 10^3/cmm (130-400); Red Blood Count 4.97 10^6/uL (4.1-5.3); Red Cell Distribution Width 12.3 % (12.1-15.1); White Blood Count 6.5 10^3/uL (4.0-10.0)
[2023-01-20 17:58] LABS: Alanine Aminotransferase 10 U/L (0-41); Albumin Level 3.7 g/dL (3.5-5.2); Alkaline Phosphatase 79 U/L (40-130); Anion Gap 15.3 (5-19); Aspartate Amino Transferase 13 U/L (0-40); Blood Urea Nitrogen 31 mg/dL (8-23); Calcium 9.5 mg/dL (8.5-10.5); Carbon Dioxide 25 mmol/L (22-29); Chloride 102 mmol/L (98-107); Glucose 188 mg/dL (65-115); Osmolality Calculated 296 mOsm/kg (285-295); Potassium 5.3 mmol/L (3.5-5.1); Sodium 137 mmol/L (136-145); Total Bilirubin 0.2 mg/dL (0.15-1.2); Total Protein 6.7 g/dL (6.6-8.7)
[2023-01-20] MEDS: sodium chloride 0.9% 500 ML 999 ML IV (19:02)
[2023-01-20] MEDS: amlodipine 5 mg Tablet PO (19:52)
== END 2023-01-20 20:12 | disposition home or self-care (01) ==
PROVIDERS: Emergency Provider Family Medicine; PCP Nurse Practitioner
DX: M79.661 Pain in right lower leg (principal); M79.662 Pain in left lower leg; N18.9 Chronic kidney disease, unspecified; Z79.01 Long term (current) use of anticoagulants; Z79.4 Long term (current) use of insulin; Z79.84 Long term (current) use of oral hypoglycemic drugs; Z86.711 Personal history of pulmonary embolism; Z86.718 Personal history of other venous thrombosis and embolism
CPT/HCPCS: 36415; 80053; 85025; 93970; 96360; 99285; J7040

== ENCOUNTER → 2023-07-21 10:40 | Outpatient (BNVA) | payer OTHER, SELFPAY | PROVIDERS: PCP Nurse Practitioner; Visit Provider Internal Medicine | DX: E11.65 Type 2 diabetes mellitus with hyperglycemia (principal); E78.2 Mixed hyperlipidemia; Z79.4 Long term (current) use of insulin; E11.319 Type 2 diabetes mellitus with unspecified diabetic retinopathy without macular edema; Z86.73 Personal history of transient ischemic attack (TIA), and cerebral infarction without residual deficits; G89.29 Other chronic pain; M79.606 Pain in leg, unspecified; Z79.84 Long term (current) use of oral hypoglycemic drugs | CPT/HCPCS: 99214 ==

== ENCOUNTER → 2023-08-27 09:39 | Outpatient (BNVA) | payer OTHER, SELFPAY | PROVIDERS: PCP Nurse Practitioner; Visit Provider Nurse Practitioner Family | DX: Z85.828 Personal history of other malignant neoplasm of skin (principal); L21.8 Other seborrheic dermatitis; L57.0 Actinic keratosis; L57.8 Other skin changes due to chronic exposure to nonionizing radiation; L81.4 Other melanin hyperpigmentation; L85.3 Xerosis cutis | CPT/HCPCS: 17000; 99214 ==

== ENCOUNTER → 2023-09-08 09:27 | Outpatient (BNVA) | payer OTHER, SELFPAY | PROVIDERS: PCP Nurse Practitioner; Visit Provider Podiatrist Foot & Ankle Surgery | DX: B35.1 Tinea unguium (principal); E11.65 Type 2 diabetes mellitus with hyperglycemia; I73.9 Peripheral vascular disease, unspecified; G62.9 Polyneuropathy, unspecified; E11.42 Type 2 diabetes mellitus with diabetic polyneuropathy; Z79.4 Long term (current) use of insulin; Z79.84 Long term (current) use of oral hypoglycemic drugs | CPT/HCPCS: 11721; 99203 ==

== ENCOUNTER → 2023-09-15 15:48 | Outpatient (BNVA) | payer OTHER, SELFPAY | PROVIDERS: PCP Nurse Practitioner; Referring Provider Nurse Practitioner; Visit Provider Internal Medicine Cardiovascular Disease | DX: R07.9 Chest pain, unspecified (principal); I44.4 Left anterior fascicular block; I26.99 Other pulmonary embolism without acute cor pulmonale; M79.606 Pain in leg, unspecified; E11.65 Type 2 diabetes mellitus with hyperglycemia; I10 Essential (primary) hypertension | CPT/HCPCS: 93005; 99204 ==

== ENCOUNTER 2023-09-26 07:09 | Outpatient (CLI) | payer OTHER, SELFPAY ==
--- NOTE | 2023-09-26 07:30 | USCV_ITS ---
Sivakumar Torres Age: 83 Gender: M : 1940 Exam Date: 09/26/2023 07:26 Ordering Phys: Zhang Regan MD ([email or web address]) Technologist: SHAZIA Exam Location: [facility] [place] Indication: CHEST PAIN AND SHORTNESS OF BREATH BP: 118 / 68 HR: 85 Rhythm: Sinus Technical Quality: MEASUREMENTS (Male / Female) Normal Values 2D ECHO LVOT Diameter 2.0 cm LV Ejection Fraction MOD 2C 57.9 % LV Ejection Fraction 2C AL 58.9 % LA Diameter 3.8 cm LA Width 4.4 cm LA Height 4.7 cm RA Width 2.8 cm RA Height 5.4 cm Aorta at Sinotubular Diameter 2.9 cm IVC Diameter 1.3 cm M-MODE Aortic Annulus Diameter 3.4 cm LA Ao Ratio MM 1.1 MV E Point Septal Separation 0.4 cm DOPPLER AV Peak Velocity 140.0 cm/s LVOT Peak Velocity 102.0 cm/s AV Area Cont Eq vti 2.4 cm squared AV Area Cont Eq pk 2.4 cm squared MV Peak Velocity 105.0 cm/s MV Area PHT 3.7 cm squared Mitral E to A Ratio 0.9 MV E' Velocity 44.5 cm/s Mitral E to MV E' Ratio 12.9 Mitral E to LV E' Lateral Ratio 13.4 Mitral E to LV E' Septal Ratio 12.7 TR Peak Velocity 152.2 cm/s TR Peak Gradient 9.3 mmHg TR Mean Velocity 108.8 cm/s TR Mean Gradient 5.5 mmHg TR Velocity Time Integral 29.9 cm TV Peak E Velocity 58.0 cm/s Right Atrial Pressure 3.0 mmHg Pulmonary Artery Systolic Pressu 12.3 mmHg PV Peak Velocity 100.0 cm/s RV Acceleration Time 0.1 s RV Ejection Time 0.3 s RV AcT/ET 0.3 FINDINGS Left Ventricle Normal left ventricular size and systolic function, EF 57 %. Mild left ventricular hypertrophy. No regional wall motion abnormalities. Grade I/IV diastolic dysfunction (abnormal relaxation filling pattern), normal to mildly elevated filling pressures. Right Ventricle The right ventricle is normal in size and function. Right Atrium The right atrium is normal in size. Left Atrium Mildly increased left atrial size. Mitral Valve Thickened mitral valve. Moderate mitral annular calcification. Trace mitral valve regurgitation. Aortic Valve No gross abnormalities noted Tricuspid Valve No gross abnormalities noted Pulmonic Valve Pulmonic valve not well visualized. Pericardium Normal pericardium without effusion. Aorta Normal ascending aorta dimension. IVC Normal inferior vena cava. CONCLUSIONS Normal left ventricular size and systolic function, EF 57 %. Mild left ventricular hypertrophy. No regional wall motion abnormalities. Grade I/IV diastolic dysfunction (abnormal relaxation filling pattern), normal to mildly elevated filling pressures. Mildly increased left atrial size. Thickened mitral valve. Moderate mitral annular calcification. Trace mitral valve regurgitation. There is no pericardial effusion. Compared to the study from 10/06/2020, there may be a significant change Dr Zhang Regan MD [facility] (Electronically Signed) Final Date: 27 September 2023 13:27 S
[2023-09-26 08:19] VITALS: BMI 29.7
--- NOTE | 2023-09-26 08:20 | ECG_ITS ---
[facility] Test Date: 2023-09-26 Pat Name: Sivakumar Torres Department: Room: Gender: Male Accountant: Bautista Villa : 1940 Requested By: Zhang Regan Order Number: [id number] Macho MD: Zhang Regan M.D. Interpretive Statements NAME OF STUDY: LEXISCAN SESTAMIBI STRESS TEST INDICATION: Chest Pain, PROCEDURE: At the baseline, the EKG revealed normal sinus rhythm nonspecific ST-T changes. Nonspecific IVCD. The baseline heart was 86 bpm with a blood pressue of 148/89 mm of Hg Lexiscan was infused over a period of 20 seconds. A total of 0.4 milligrams of Lexiscan was infused. The stress phase was continued for a total of 5 minutes. Heart rate at the end of the stress phase was 90 bpm with a blood pressure 148/83 mm of Hg. The EKG at the peak infusion revealed no significant changes. Sestamibi was injected 20 seconds after the Lexiscan infusion. Heart rate at the end of the recovery phase was 89 bpm with a blood pressure of 152/82 mm of Hg. CONCLUSION: 1. No significant EKG changes with the LexiScan infusion 2. No LexiScan induced chest pain or cardiac arrhythmia 3. Normal blood pressure and heart rate response 4. Sestamibi/sestamibi perfusion scan pending; see separate report. Electronically Signed On 09-26-2023 14:08:53 BRACER by Zhang Regan M.D. [id number]
--- NOTE | 2023-09-26 08:21 | NMCV_ITS ---
NM camilo perf SPECT r/s* [id number] Sivakumar Torres Age: 83 Gender: M : 1940 Exam Date: 09/26/2023 08:53 Ordering Phys: Zhang Regan MD ([email or web address]) Technologist: CORNELL Woodward Exam Location: [facility] Indications: DYSPNEA ON EXERTION STRESS TEST [facility] IMAGE PROTOCOL Rest/Stress 1 Lexiscan Day Radiopharmaceutical Dose (mCi) Administration Site Administered by Rest: Tc-99m IV CORNELL Arana Sestamibi Stress:Tc-99m 32.8 IV CORNELL Arana Sestamibi Rest: 26-Sep-2023 60 Discovery 630 Stress: 26-Sep-2023 30 Discovery 630 0.4mg Lexiscan. Supine position only as patient was unable to lay prone. SPECT RESULTS Technical Quality: Excellent Raw Data Analysis: Normal Image Corrections: No attenuation or motion correction applied Summed Stress Score: 0 Summed Rest Score: 0 Summed Difference Score: 0 PERFUSION FINDINGS Uniform myocardial tracer uptake with no significant perfusion abnormality FUNCTIONAL RESULTS (calculated via Gated SPECT) Stress Image LV EF (%): 68 Stress EDV (mL):80 TID: 0.94 Stress ESV (mL):26 FUNCTIONAL FINDINGS: Segmental wall motion analysis revealing no gross wall motion abnormalities IMPRESSIONS 1. Myocardial perfusion imaging revealing no significant perfusion abnormalities 2. Normal LV ejection fraction of 68%. 3. LV wall motion analysis revealing no gross wall motion abnormalities. 4. Normal LV volume Low probability for coronary ischemia, based on the above findings Dr Zhang Regan MD [facility] (Electronically Signed) Final Date: 26 September 2023 21:41 S
[2023-09-26] MEDS: regadenoson 0.4 Mg/5 ml Syringe IVP (09:31)
[2023-09-26 09:51] VITALS: BP 152/82; PULSE 92
== END 2023-09-26 07:10 | disposition home or self-care (01) ==
LOC: RAD 07:09 → CDL 08:13
PROVIDERS: PCP Nurse Practitioner; Visit Provider Internal Medicine Cardiovascular Disease
DX: I34.0 Nonrheumatic mitral (valve) insufficiency (principal); R06.09 Other forms of dyspnea; R07.9 Chest pain, unspecified
CPT/HCPCS: 78452; 93017; 93306; A9500; J2785

== ENCOUNTER 2023-09-26 08:00 | Outpatient (CLI) | payer OTHER, SELFPAY | END 2023-09-26 08:01 | disposition home or self-care (01) | LOC: CDL 11-13 13:27 | PROVIDERS: PCP Nurse Practitioner; Visit Provider Internal Medicine Cardiovascular Disease | DX: R07.9 Chest pain, unspecified (principal); R06.02 Shortness of breath | CPT/HCPCS: 36415; 96374 ==

== ENCOUNTER 2023-10-06 09:26 | Outpatient (CLI) | payer OTHER, SELFPAY ==
--- NOTE | 2023-10-06 09:30 | USR_ITS ---
PROCEDURE INFORMATION: Exam: US Duplex Bilateral Lower Extremity Arteries Exam date and time: 10/06/2023 9:39 AM Age: 83 years old Clinical indication: Pain; Leg, lower; Bilateral; Additional info: Leg pain TECHNIQUE: Imaging protocol: Real-time ultrasound scan of the arteries of the bilateral lower extremities with 2-D bal scale, color Doppler flow and spectral waveform analysis. Images documented and saved. COMPARISON: No relevant prior studies available. FINDINGS: Right common femoral artery: No occlusion or significant stenosis. Normal waveform. Right superficial femoral artery: No occlusion or significant stenosis. Normal waveform. Right popliteal artery: Monophasic waveform indicating stenosis. Peak systolic velocity of 28.4 cm/s. Right calf/foot arteries: Anterior tibial and peroneal arteries not interrogated. Posterior tibial artery is occluded. Dorsalis pedis artery shows monophasic waveform indicating stenosis with peak systolic velocity of 51.3 cm/s. Note of noncompressible posterior tibial and dorsalis pedis arteries, precluding BIRD evaluation. Left common femoral artery: No occlusion or significant stenosis. Normal waveform. Left superficial femoral artery: No occlusion or significant stenosis. Normal waveform. Left popliteal artery: Monophasic waveform indicating stenosis. Peak systolic velocity of 42.4 cm/s. Left calf/foot arteries: Anterior tibial and peroneal arteries not interrogated. Posterior tibial artery and dorsalis pedis artery show monophasic waveforms indicating stenosis with peak systolic velocities of 35.5 cm/s and 11.1 cm/s, respectively. Note of noncompressible posterior tibial and dorsalis pedis arteries, precluding BIRD evaluation. US/[place] [id number] IMPRESSION: 1. 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 2. Stenosis of interrogated bilateral popliteal and calf/foot arteries.
== END 2023-10-06 09:27 | disposition home or self-care (01) ==
LOC: RAD 09:26
PROVIDERS: PCP Nurse Practitioner; Visit Provider Internal Medicine Cardiovascular Disease
DX: I70.203 Unspecified atherosclerosis of native arteries of extremities, bilateral legs (principal); M79.605 Pain in left leg; M79.604 Pain in right leg
CPT/HCPCS: 93925

== ENCOUNTER → 2023-10-20 10:58 | Outpatient (BNVA) | payer OTHER, SELFPAY | PROVIDERS: PCP Nurse Practitioner; Visit Provider Internal Medicine Cardiovascular Disease | DX: M79.605 Pain in left leg (principal); M79.604 Pain in right leg; R07.9 Chest pain, unspecified; I10 Essential (primary) hypertension; R94.31 Abnormal electrocardiogram [ECG] [EKG]; I27.82 Chronic pulmonary embolism; G62.0 Drug-induced polyneuropathy; I73.9 Peripheral vascular disease, unspecified; E11.649 Type 2 diabetes mellitus with hypoglycemia without coma; I26.99 Other pulmonary embolism without acute cor pulmonale; Z79.4 Long term (current) use of insulin | CPT/HCPCS: 99215 ==

== ENCOUNTER → 2023-11-12 11:47 | Outpatient (BNVA) | payer OTHER, SELFPAY | PROVIDERS: PCP Nurse Practitioner; Visit Provider Internal Medicine | DX: I73.9 Peripheral vascular disease, unspecified (principal); I10 Essential (primary) hypertension; I26.99 Other pulmonary embolism without acute cor pulmonale; E78.2 Mixed hyperlipidemia | CPT/HCPCS: 36415; 80048; 99214 ==

== ENCOUNTER 2023-12-08 15:11 | Outpatient (CLI) | payer OTHER, MEDICARE, SELFPAY ==
[2023-12-08] VITALS (43 sets, daily range): BP systolic 126–135; BP diastolic 72–74; PULSE 70–96; RESP 13–24; TEMP 36.6; O2SAT 90–97; BMI 31.2
--- OUTSIDE RECORDS SUMMARY | 2023-12-08 15:17 | XMS_ITS | Patient Health Record ---
Author Name Unknown Organization [facility] Address [address] [place] [address] Support Name Relationship Address Phone MIKE GOSS Guarantor Unknown [phone] REASON FOR REFERRAL No Information MEDICATIONS Medication SIG (Take, Route, Frequency, Duration) Notes Start Date End Date Status 24 HR mirabegron 50 MG Extended Release Tablet 24 HR mirabegron 50 MG Extended Release Tablet 8 11/10/18 Active NPH Insulin, Human 100 UNT/ML Injectable Suspension NPH Insulin, Human 100 UNT/ML Injectable Suspension 7 11/10/18 Active 24 HR Oxybutynin chloride 15 MG Extended Release Tablet 24 HR Oxybutynin chloride 15 MG Extended Release Tablet 7 11/10/18 Active Glipizide 5 MG Oral Tablet Glipizide 5 MG Oral Tablet 7 11/10/18 Active Hydrochlorothiazide 12.5 MG / Lisinopril 10 MG Oral Tablet Hydrochlorothiazide 12.5 MG / Lisinopril 10 MG Oral Tablet 7 11/10/18 Active Tamsulosin hydrochloride 0.4 MG Oral Capsule Tamsulosin hydrochloride 0.4 MG Oral Capsule 8 11/10/18 Active IMMUNIZATIONS Vaccine Route Administration Date Status Comme nts Influenza (whole), CPT 93195 Inactive Unknown 05/26/2018 Administered SOCIAL HISTORY Sex Assigned At : Social History Observation Description Sex Assigned At Unknown PLAN OF TREATMENT No Information
--- NOTE | 2023-12-08 16:22 | P.HP_ITS ---
Providers/Chief Complaint 2 Admitting Physician: Messi Anne M.D Primary Care Provider: MARK Tanner Chief Complaint: Pre Cath, Fluid Hydration History of Present Illness Sivakumar Torres is a 83 year old male with past medical history of hypertension, diabetes who has been having bilateral leg discomfort on exertion. Symptoms have been worse on the right side. This is lifestyle limiting. Doppler ultrasound showing significant PAD. Plan for peripheral angiogram tomorrow. He has been admitted as has significant CKD and will need prehydration. Review of Systems 2 Const: Denies: fever(s) or chills Card: Reports: swelling of feet/ankles and leg pain with exertion; Denies: chest pain, palpitations, irregular heart rhythm, lightheadedness, pre- syncope, dyspnea on exertion or orthopnea Resp: Denies: dyspnea, productive cough or non-productive cough Musc: Denies: neck pain or back pain Neuro: Denies: headache(s) or dizziness Psych: Denies: anxiety, depression, suicidal ideation or homicidal ideation Mayito/Lymph: Reports: easy bruising and easy bleeding Medications/Allergies Home Medications Medication Instructions Recorded Confirmed Last Taken Type Lactobacillus acidophilus 1 1,000 mmu cells PO DAILY 11/23/19 11/12/23 Unknown History billion cell capsule albuterol sulfate 90 mcg/actuation 2 puff inhalation Q6H PRN 11/23/19 12/08/23 Unknown History aerosol inhaler Shortness Of Breath Or Wheezing apixaban 2.5 mg tablet (Eliquis) 2.5 mg PO BID 11/23/19 12/08/23 12/06/23 20:00 History ascorbic acid (vitamin C) 500 mg 500 mg PO BID 11/23/19 12/08/23 12/07/23 20:00 History capsule cyanocobalamin (vitamin B-12) 1,000 mcg PO DAILY 11/23/19 11/12/23 Unknown History 1,000 mcg capsule gabapentin 600 mg tablet 600 mg PO BID 11/23/19 11/12/23 Unknown History methenamine hippurate 1 gram tablet 1 gm PO BID 11/23/19 12/08/23 12/08/23 08:00 History memantine 5 mg tablet 5 mg PO QDAY 12/07/19 12/08/23 12/08/23 08:00 History oxybutynin chloride 5 mg tablet 5 mg PO BID 08/07/20 11/12/23 Unknown History metformin 500 mg tablet,extended 500 mg PO BID #180 tabs 02/04/22 11/12/23 Unknown Rx release 24 hr furosemide 20 mg tablet (Lasix) 20 mg PO DAILY #5 tabs 04/12/22 11/12/23 Unknown Rx blood-glucose meter,continuous #1 ea 05/06/22 11/12/23 Unknown Rx (Dexcom G6 Stenotype Machine Operator) blood-glucose sensor (Dexcom G6 #3 ea 05/06/22 11/12/23 Unknown Rx Sensor device) blood-glucose transmitter (Dexcom #1 ea 05/06/22 11/12/23 Unknown Rx G6 Transmitter device) insulin detemir U-100 100 unit/mL 50 unit (0.5 mL) SUBCUT DAILY #60 05/28/22 11/12/23 Unknown Rx subcutaneous solution (Levemir mL U-100 Insulin) amitriptyline 10 mg tablet 10 mg PO DAILY 08/26/22 12/08/23 12/07/23 20:00 History cholecalciferol (vitamin D3) 25 25 mcg PO DAILY 08/26/22 12/08/23 12/08/23 08:00 History mcg (1,000 unit) capsule lidocaine 5 % topical cream 1 applic topical BID PRN 08/26/22 11/12/23 Unknown History multivitamin 1 tab PO DAILY 08/26/22 11/12/23 Unknown History omega 9-bmf-rwq-fish oil 300 1 cap PO DAILY 08/26/22 11/12/23 Unknown History mg-1,000 mg capsule (Fish Oil) ezetimibe 10 mg tablet (Zetia) 10 mg PO DAILY #90 tabs 08/27/22 11/12/23 Unknown Rx insulin syringe-needle U-100 1 mL ##100 10/01/22 11/12/23 Unknown Rx 31 gauge x 03/25 insulin detemir U-100 100 unit/mL 50 unit (0.5 mL) SUBCUT DAILY #15 10/28/22 11/12/23 Unknown Rx (3 mL) subcutaneous pen (Levemir mL FlexTouch U-100 Insulin) ketoconazole 2 % shampoo 1 applic topical .2x weekly #120 mL 01/02/23 11/12/23 Unknown Rx ketoconazole 2 % topical cream 1 applic topical BID #30 grams 01/02/23 11/12/23 Unknown Rx flash glucose sensor (FreeStyle #6 ea 01/06/23 11/12/23 Unknown Rx Carlos 2 Sensor kit) amlodipine 2.5 mg tablet 2.5 mg PO DAILY #30 tabs 01/20/23 12/08/23 12/08/23 08:00 Rx lisinopril 20 mg tablet 20 mg PO DAILY #30 tabs 01/20/23 12/08/23 12/08/23 08:00 Rx enoxaparin 100 mg/mL subcutaneous 100 mg SUBCUT Q12H #4 mL 12/05/23 12/08/23 12/08/23 08:00 Rx syringe (Lovenox) empagliflozin 25 mg tablet 25 mg PO DAILY 12/08/23 12/08/23 12/08/23 08:00 History (Jardiance) insulin glargine 100 unit/mL 58 unit SUBCUT QAM 12/08/23 12/08/23 12/08/23 08:00 History subcutaneous solution (Lantus U-100 Insulin) mirabegron 50 mg tablet,extended 50 mg PO DAILY 12/08/23 12/08/23 12/08/23 08:00 History release 24 hr (Myrbetriq) Allergies Allergy/AdvReac Type Severity Reaction Status Date / Time pravastatin AdvReac Severe ADR-Muscle Verified 11/12/23 12:43 Pain PFSH Acute 2 PFSH: Medical History Urolithiasis Multi stone former. Chronic LLP stone measuring about 11 mm. Urinary incontinence Intermittent self-catheterization of bladder Urinary retention Bilateral pulmonary embolism Lower urinary tract symptoms Surgical History History of back surgery History of shoulder surgery S/P cholecystectomy S/P transurethral resection of prostate Family History Family/Other Diabetes CAD (coronary artery disease) Father , at age 68 Heart disease Mother , at age 44 No problems noted. Social History (Reviewed 12/09/23 @ 07:18 by Bertrand Walter Smoking and tobacco/nicotine status: never used tobacco/nicotine Second hand smoke exposure: No Alcohol intake: former Substance/Drug Use: never Lives independently: Yes Household members: none Housing: House Marital status: service: Yes Current occupational status: retired Pets and animals: No Do you think of yourself as: Straight/Heterosexual Current gender identity: Male Physical Exam 2 Narrative: GENERAL: Patient is alert, awake and oriented x3. [] NECK: No jugular vein distension. [] HEENT: No cyanosis. No icterus. No pallor. [] HEART: Regular S1 and S2. No murmur, rub or gallop. [] LUNGS: Clear to auscultate bilaterally. [] CENTRAL NERVOUS SYSTEM: Grossly nonfocal. [] EXTREMITIES: Lower extremities with 1+ edema bilaterally. Data 12/08/23 17:12 12/09/23 05:45 A&P Assessment and plan (1) Bilateral pulmonary embolism: (2) DVT (deep venous thrombosis): (3) Hyperlipemia, mixed: (4) PAD (peripheral artery disease): (5) Claudication: Plan Patient has severe lifestyle limiting claudication mostly on the right side. We will plan on peripheral angiogram with possible intervention tomorrow. Has significant CKD. We will start IV hydration at 50 cc/h till tomorrow morning. N.p.o. after midnight. Sliding scale insulin. Monitor labs in the morning. Attestations 2 Medical Necessity Statement*: Care expected to cross 2 midnights. Patient will need hydration through procedure tomorrow. May require 1 more day in the hospital for hydration afterwards and observation. Coding Level of Care Code Acute Code for [facility] Fwd Diagnoses Bilateral pulmonary embolism I26.99 DVT (deep venous thrombosis) I82.409 Hyperlipemia, mixed E78.2 PAD (peripheral artery disease) I73.9 Claudication I73.9
[2023-12-08 17:29] LABS: Basophils % 0.3 %; Eosinophils # 0.3 10^3/uL (0.0-0.8); Eosinophils % 2.6 %; Hematocrit 50.3 % (37-53); Lymphocytes % 19.9 %; Mean Corpuscular HGB Conc 32.2 g/dL (30-55); Mean Corpuscular Volume 96.4 fl (82-101); Mean Platelet Volume 9.9 fL (7.4-10.4); Monocytes # 0.7 10^3/uL (0.2-0.9); Monocytes % 7.1 %; Neutrophils # 7.01 10^3/uL (1.8-7.7); Neutrophils % 69.8 %; Nucleated Red Blood Cells % 0 %; Platelet Count 196 10^3/cmm (157-399); Red Blood Count 5.22 10^6/uL (3.85-5.65); Red Cell Distribution Width 12.6 % (12.1-15.1); White Blood Count 10.04 10^3/uL (3.29-11.43)
[2023-12-08 17:46] LABS: Alanine Aminotransferase 13 U/L (0-41); Albumin Level 3.5 g/dL (3.5-5.2); Alkaline Phosphatase 74 U/L (40-130); Anion Gap 15.1 (5-19); Aspartate Amino Transferase 17 U/L (0-40); Blood Urea Nitrogen 30 mg/dL (8-23); Calcium 9.4 mg/dL (8.5-10.5); Carbon Dioxide 24 mmol/L (22-29); Chloride 102 mmol/L (98-107); Globulin 3.9 g/dL (1.3-4.6); Glucose 137 mg/dL (65-115); Osmolality Calculated 292 mOsm/kg (285-295); Potassium 4.1 mmol/L (3.5-5.1); Sodium 137 mmol/L (136-145); Total Bilirubin 0.4 mg/dL (0.15-1.2); Total Protein 7.4 g/dL (6.6-8.7)
[2023-12-08] MEDS: sodium chloride 0.9% 1,000 ML 50 ML IV (18:10)
[2023-12-09] VITALS (69 sets, daily range): BP systolic 107–189; BP diastolic 64–106; PULSE 71–103; RESP 4–27; TEMP 36.7–37; O2SAT 87–96; BMI 31.2
[2023-12-09 06:36] LABS: Anion Gap 13.9 (5-19); Blood Urea Nitrogen 27 mg/dL (8-23); Calcium 9.4 mg/dL (8.5-10.5); Carbon Dioxide 26 mmol/L (22-29); Chloride 106 mmol/L (98-107); Creatinine Clr Calc Pharmacy 44.5003; Glucose 82 mg/dL (65-115); Osmolality Calculated 298 mOsm/kg (285-295); Potassium 3.9 mmol/L (3.5-5.1); Sodium 142 mmol/L (136-145)
--- NOTE | 2023-12-09 06:42 | XACV_ITS ---
Ht: 180 cm Wt: 98 kg BSA: 2.23 m2 Any Known Allergies: Other Gender: Male : 1940 Exam Type: Invasive Peripheral Vascular Procedure(s): Procedure Description: Peripheral Cath Diagnostic Procedure Procedure Description: Abdominal aortic angiography Procedure Description: Lower extremities' angiography Exam Priority: Routine Abdominal Diagnostic Findings Distal abdominal aorta: Patent. Lower Extremity Diagnostic Findings INDICATION: 83 year old male with past medical history of hypertension, diabetes who has been having bilateral leg discomfort on exertion. Symptoms have been worse on the right side. This is lifestyle limiting. Doppler ultrasound showing significant PAD./Lifestyle limiting claudication. Right lower extremity findings: Right common iliac artery is patent. Right external iliac artery is patent. Right internal iliac artery is patent. Right common femoral artery is patent. Right profunda artery is patent. Right SFA patent. Right popliteal artery is patent. Below the knee patient has severe PAD. Anterior tibial artery is subtotally occluded in proximal section and then diffusely diseased with total occlusion in the mid to distal segment. Peroneal artery is 100% occluded with collaterals reconstituting it. Posterior tibial artery is totally occluded.. Left lower extremity findings: Left common iliac artery is patent. Left external iliac artery is patent. Left internal iliac artery is patent. Left common femoral artery is patent. Left profunda artery is patent. Left SFA is patent. Left popliteal artery is patent. Below the knee patient has severe PAD. Severe diffusely diseased anterior tibial artery with total occlusion in distal segment. TP segment is totally occluded with reconstitution of the posterior tibial and peroneal artery via collaterals.. Conclusions Severe infrapopliteal peripheral artery disease. Recommendations Aggressive medical therapy. Outpatient cardiology follow-up in 2 weeks. Hemodynamic Data Phase:Rest AO : 141.0 / 68.0 ( 95.0 ) @ 10:20:00 AM 128.0 / 68.0 ( 93.0 ) @ 10:21:00 AM 129.0 / 71.0 ( 96.0 ) @ 10:25:00 AM 144.0 / 64.0 ( 94.0 ) @ 10:31:00 AM Access Site Site: Left Femoral artery Sheath Size: 6 Fr Hemost... Method: Suture Hemost... Success: Successful Procedure Details Findings Pre-Procedure Time Out. Identified patient by full name and date of as verbalized by the patient/guarantor. Does the consent match the physician's order: Yes. Accurate & Complete Informed Consent: Yes. Inpatient/Outpatient History & Physical on Chart: Yes. If H&P is completed, is and addenduem needed: No; If yes, is the addendum complete: N/A. Visualize and Verify Site with Patient/Guarantor: N/A. Relevant Radiology Images available: Yes. Pre-op teaching completed and patient verbalized understanding. The risks, benefits, and alternatives of sedation and/or procedure were discussed by physician. The patient agrees to continue. Procedure started. Physician arrived. PERRLA. Strong, equal hand brass plater bilaterally. Lungs clear x 5 lobes. IV Site on Arrival: 18 gauge in the right anticubital. IV Fluids: 0.9% NaCl at KVO. 0 mL infused prior to research laboratory technician. Pre Procedural Pulses: bilateral dorsalis pedis was Doppled. Pre Procedural Pulses: bilateral posterior tibial was Doppled. Oxygen started at 2liters/min via nasal canula. bilateral groins was prepped with chloroprep then draped in the usual sterile fashion. Baseline sample Acquired. HR: 83 BPM. Physician scrubbed in. Immediate Pre-Procedure Time Out. Correct Patient: Yes; Correct Procedure: Yes; Correct Site: Yes; Correct Patient Position: Yes; Correct Supplies: Yes; Dried Flammable Prep: Yes; Blood Products Available: N/A;. Lidocaine 1% infiltrated to the left groin. Arterial access obtained with micropuncture set. A 5Fr UF catheter in over wire. Abdominal aortogram with runoff performed in AP @ 10 mL/sec for a total of 30 mL. glidewire inserted and catheter advanced to the right iliac. Wire out. DSA performed of the right lower leg. Catheter and wire out. Sheath injected in Left common femoral artery and runoff performed. DSA performed of the left lower leg. A Suture was successful obtaining hemostatsis at the Left Femoral artery insertion site. Arterial sheath flushed and connected to tranducer and pressure bag with heparinized saline. Post Procedure: Pulses reassessed and unchanged. PERRLA. Strong, equal hand brass plater bilaterally. No VTE prophylaxis required. Medication's Wasted: Heparin = 4000 units. Total IV fluids: 38 mL. Vital chart was stopped. Medication's Wasted: Other = Fentanyl 75mg Versed 1 mg. Post-op diagnosis: PAD. Complications: None. Estimated blood loss: 5mL-10mL. Responsiveness - Normal response to verbal stimuli; alert and oriented, PERRLA. Airway - Unaffected, no intervention required; spontaneous ventilation. Circulation: W/N/L, pulses unchanged. Nausea/Vomiting: No. Procedure completed. Patient transferred by bed to 1st floor. Procedure Medications Start: 10:08 AM Stop: 10:08 AM Medication: Versed 1 mg and Fentanyl 25 mcg Amount: 1 Route: I.V. I, the attending physician, have reviewed and verified all procedure medications. Yes, all medications given per verbal order History/Risk Factors Hypertension: Yes Dyslipidemia: Yes Peripheral Arterial Disease (PAD): No Obesity: No Renal Disease: No Tobacco Use: Never Prior Interventions PCI: No CABG: No Valve Surgery: No Report Signatures Finalized by Messi Anne MD on 12/22/2023 09:29 AM
--- NOTE | 2023-12-09 09:46 | PC.CHAP ---
Pastoral Care Encounter/Spiritual Assessment Type of Contact [] Declined revenue cycle manager visit [] Patient/Family/Request visit [] Outpatient visit [] Follow-up visit [] Physician referral [] Code/Alert [x] Routine visit [] Staff referral [] Actively dying [] Patient sleeping [x] Family support [] [] Out of room [] Palliative care [] [] Receiving care in room [] Pre-surgical visit [] Trauma [] Long length of stay [] ICU visit [] Other: Relational/Emotional Strength [x] Patient feels connected with others/family/visitors/staff [] Distress [] Loneliness/isolation [] Abandonment Spirituality of Patient [x] Person of Marilia [] Attends Religion of their Marilia [x] Believes in Prayer [] Reads Bible or Quaker materials [] There are Spiritual issues to be addressed Network Desktop Support Specialist Interventions [x] Prayer [x] Active listening [] Non-anxious presence [x] Spiritual/emotional support [] Crisis/trauma care [] Spiritual counseling [] Bereavement support [] Provided bereavement packet [] Provided Bible/devotional materials [] Provided toy/stuffed animal, coloring book to patient or family member [] Provided Communion [] Anointing/[place] [] Salvation [x] Completed spiritual assessment [] Other: Impact on Illness or Injury [] Angry [] Fearful [] Anxious [] Often cries [] Exhaustion [] Unable to work [] Unable to attend zoroastrianism [] Unable to walk/stand [] Unable to read [] Unable to drive [] Unable to eat/drink [] Unable to sleep [] Unable to be with family [] Patient intubated [] Other: Summary Time spent with patient 5 min
--- NOTE | 2023-12-09 09:53 | PM.PN ---
Subjective Subjective: Patient found to have severe infrapopliteal diffuse severe disease. Medical therapy Vitals/I&O/Wt Last Vital Signs Temp 98.0 F 12/09/23 04:00 Pulse 86 12/09/23 04:00 Resp 19 H 12/09/23 04:00 BP 107/66 12/09/23 04:00 Pulse Ox 91 12/09/23 04:00 O2 Del Method Room Air 12/09/23 04:00 12/08/23 12/09/23 12/09/23 22:59 06:59 14:59 Intake Total 240 / 240 0 / 240 Output Total 0 / 0 Balance 240 / 240 0 / 240 Weight last 48 hrs Weight 224 lb Weight 224 lb Physical Exam Narrative: GENERAL: Patient is alert, awake and oriented x3. [] NECK: No jugular vein distension. [] HEENT: No cyanosis. No icterus. No pallor. [] HEART: Regular S1 and S2. No murmur, rub or gallop. [] LUNGS: Clear to auscultate bilaterally. [] CENTRAL NERVOUS SYSTEM: Grossly nonfocal. [] EXTREMITIES: Lower extremities with 1+ edema bilaterally. Data 12/08/23 17:12 12/09/23 05:45 A&P Assessment and plan (1) Bilateral pulmonary embolism: (2) DVT (deep venous thrombosis): (3) Hyperlipemia, mixed: (4) PAD (peripheral artery disease): (5) Claudication: Plan Plan for medical therapy for PAD at this time. Has seen for progressive severe diffuse disease. Renal function is stable. Continue IV hydration tonight. Sliding scale insulin. If patient is stable for tomorrow, will be discharged home. Attestations Medical Necessity Statement*: Care expected to cross 2 midnights. Coding Level of Care Code Acute Code for [facility] Fwd Diagnoses Bilateral pulmonary embolism I26.99 DVT (deep venous thrombosis) I82.409 Hyperlipemia, mixed E78.2 PAD (peripheral artery disease) I73.9 Claudication I73.9
--- NOTE | 2023-12-09 09:53 | W.PM.OPSUD ---
Surgery/Procedure H&P Update DATE OF PROCEDURE: December 09, 2023 DATE H&P PERFORMED: 12/08/23 H&P UPDATE INFORMATION: I have reviewed H&P completed within last 30 days, I have examined patient prior to procedure and No changes to prior documentation PREOP DIAGNOSIS: Severe lifestyle limiting claudication PRIMARY INDICATION FOR PROCEDURE: Severe lifestyle limiting claudication PLANNED PROCEDURE: Peripheral angiogram with possible percutaneous intervention PATIENT REASSESSED PRIOR TO SEDATION, WITH NO CHANGE NOTED: Yes PHYSICAL EXAM: alert, oriented x 3, clear to auscultation bilaterally and regular rate & rhythm AIRWAY EVAL/ANESTHESIA PLAN: normal airway, ASA III, Local Anesthesia, Risks, benefits & alternatives of sedation and/or procedure discussed and Patient agrees to continue as planned ADDITIONAL INFORMATION: Moderate sedation
[2023-12-09] MEDS: hyDRALAzine 20 mg/mL INJ 1 mL 10 MG IVP (11:38)
--- NOTE | 2023-12-09 12:13 | PC.NURSE ---
Patient arrived back from [employer] with sheath intact and orders to pull on arrival. Nurse pulled sheath and had no issues. Dressing is applied and nurse will continue to monitor. Patient and family educated on activity restrictions.
[2023-12-09] MEDS: acetaminophen 325 mg Tablet 650 MG PO (16:16)
[2023-12-09] MEDS: insulin lispro 100 unit/1 mL SUBCUT ×2 (18:16→21:50)
[2023-12-09 19:07] LABS: Glucose Point of Care 189 mg/dL (70-110)
[2023-12-09 21:29] LABS: Glucose Point of Care 281 mg/dL (70-110)
[2023-12-10 01:22] VITALS: BP 118/68; PULSE 88; RESP 19; TEMP 37.1; O2SAT 91
--- NOTE | 2023-12-10 01:24 | PC.NURSE ---
Patient became disoriented upon waking. Bed alarm alerted staff to patient trying to leave bed. Upon arriving to room patient appeared agitated, sitting on edge of bed, pulling of telemetry, pulse ox, and pulling at IV. Assisted patient to chair as he had been incontinent of urine while sitting on side of bed. Assisted patient with kranthi care, dressing, changed bed linen, and reoriented patient to place and situation. Patient was agreeable to placing telemetry and pulse ox on, returning to bed. Sheath site checked no new blood or hematoma present. Bedside table, call light, and drink provided within patients reach, bed alarm set. Patient and daughter educated on risks for falls during hospital stay and use of call light, both verbalized understanding.
[2023-12-10 04:05] VITALS: BP 121/69; PULSE 85; RESP 19; O2SAT 91
[2023-12-10 05:11] VITALS: BMI 31.2
[2023-12-10 06:45] LABS: Glucose Point of Care 190 mg/dL (70-110)
--- NOTE | 2023-12-10 07:30 | P.DS_ITS ---
Discharge Providers Date of Admission: 12/08/23 15:11 Date of Discharge: December 10, 2023 Attending Provider at Admission: Messi Anne M.D Attending Provider at Discharge: Messi Anne M.D Primary Care Provider: MARK Tanner Diagnoses at Discharge Discharge Diagnosis (1) Bilateral pulmonary embolism: Status: Inactive (2) DVT (deep venous thrombosis): Status: Inactive (3) Hyperlipemia, mixed: Status: Inactive (4) PAD (peripheral artery disease): Status: Acute (5) Claudication: Status: Acute Reason for Visit Reason for Visit: Pre Cath, Fluid Hydration Brief History: 83 year old male with past medical histo ry of hypertension, diabetes who has been having bilateral leg discomfort on exertion. Symptoms have been worse on the right side. This is lifestyle limiting. Doppler ultrasound showing significant PAD. Plan for peripheral angiogram tomorrow. He has been admitted as has significant CKD and will need prehydration. Hospital Course Hospital Course Peripheral angiogram demonstrated severe bilateral below the knee PAD. Total occlusions of all vessels with collateral blood flow. Medical therapy was decided. His symptoms are combination of peripheral neuropathy and PAD. We will start him on gabapentin as outpatient. We will check renal function as outpatient in 3-4 days Physical Exam Narrative: GENERAL: Patient is alert, awake and oriented x3. [] NECK: No jugular vein distension. [] HEENT: No cyanosis. No icterus. No pallor. [] HEART: Regular S1 and S2. No murmur, rub or gallop. [] LUNGS: Clear to auscultate bilaterally. [] CENTRAL NERVOUS SYSTEM: Grossly nonfocal. [] EXTREMITIES: Lower extremities with 1+ edema bilaterally. Pulses in feet not palpable. Warm lower extremities. Discharge Data Studies Completed and Pending Pending at discharge Category Date Time Status KNIFE [employer]ENER request for service Routine Exams 12/09/23 06:42 Taken Laboratory Results WBC 10.04 10^3/uL (3.29-11.43) 12/08/23 17:12 RBC 5.22 10^6/uL (3.85-5.65) 12/08/23 17:12 Hgb 16.20 g/dL (11.27-16.99) 12/08/23 17:12 Hct 50.3 % (37-53) 12/08/23 17:12 MCV 96.4 fl (82-101) 12/08/23 17:12 MCH 31.0 pg (27-33) 12/08/23 17:12 MCHC 32.2 g/dL (30-55) 12/08/23 17:12 RDW 12.6 % (12.1-15.1) 12/08/23 17:12 Plt Count 196 10^3/cmm (157-399) 12/08/23 17:12 MPV 9.9 fL (7.4-10.4) 12/08/23 17:12 Neut % (Auto) 69.8 % 12/08/23 17:12 Lymph % (Auto) 19.9 % 12/08/23 17:12 Kinney % (Auto) 7.1 % 12/08/23 17:12 Eos % (Auto) 2.6 % 12/08/23 17:12 Baso % (Auto) 0.3 % 12/08/23 17:12 Neut # (Auto) 7.01 10^3/uL (1.8-7.7) 12/08/23 17:12 Lymph # (Auto) 2.0 10^3/uL (0.8-4.8) 12/08/23 17:12 Kinney # (Auto) 0.7 10^3/uL (0.2-0.9) 12/08/23 17:12 Eos # (Auto) 0.3 10^3/uL (0.0-0.8) 12/08/23 17:12 Baso # (Auto) 0.0 10^3/uL (0.0-0.1) 12/08/23 17:12 Nucleated RBC % (auto) 0 % 12/08/23 17:12 Nucleated RBCs # 0.0 /100WBC 12/08/23 17:12 Sodium 142 mmol/L (136-145) 12/09/23 05:45 Potassium 3.9 mmol/L (3.5-5.1) 12/09/23 05:45 Chloride 106 mmol/L (98-107) 12/09/23 05:45 Carbon Dioxide 26 mmol/L (22-29) 12/09/23 05:45 Anion Gap 13.9 (5-19) 12/09/23 05:45 BUN 27 mg/dL (8-23) H 12/09/23 05:45 Creatinine 1.5 mg/dL (0.7-1.2) H 12/09/23 05:45 GFR Calculation Not Reportable 12/09/23 05:45 Glucose 82 mg/dL (65-115) 12/09/23 05:45 POC Glucose 190 mg/dL (70-110) H 12/10/23 06:32 Calculated Osmolality 298 mOsm/kg (285-295) H 12/09/23 05:45 Calcium 9.4 mg/dL (8.5-10.5) 12/09/23 05:45 Total Bilirubin 0.4 mg/dL (0.15-1.2) 12/08/23 17:12 AST 17 U/L (0-40) 12/08/23 17:12 ALT 13 U/L (0-41) 12/08/23 17:12 Alkaline Phosphatase 74 U/L (40-130) 12/08/23 17:12 Total Protein 7.4 g/dL (6.6-8.7) 12/08/23 17:12 Albumin 3.5 g/dL (3.5-5.2) 12/08/23 17:12 Globulin 3.9 g/dL (1.3-4.6) 12/08/23 17:12 Vitals Last Vital Signs Temp 98.7 F 12/10/23 01:22 Pulse 85 12/10/23 04:05 Resp 19 H 12/10/23 04:05 BP 121/69 12/10/23 04:05 Pulse Ox 91 12/10/23 04:05 O2 Del Method Room Air 12/09/23 04:00 Discharge Plan Discharge Patient Disposition: Home Prescriptions: Continued albuterol sulfate 90 mcg/actuation HFA aerosol inhaler 2 puff INHALATION Q6H PRN (Reason: Shortness Of Breath Or Wheezing) cyanocobalamin (vitamin B-12) 1,000 mcg capsule 1,000 mcg PO DAILY Eliquis 2.5 mg tablet 2.5 mg PO BID methenamine hippurate 1 gram tablet 1 gm PO BID ascorbic acid (vitamin C) 500 mg capsule 500 mg PO BID Rx Instructions: 500MG BID memantine 5 mg tablet 5 mg PO QDAY cholecalciferol (vitamin D3) 25 mcg (1,000 unit) capsule 25 mcg PO DAILY omega [id number]-fish oil [Fish Oil] 300-1,000 mg capsule 1 cap PO DAILY amitriptyline 10 mg tablet 10 mg PO DAILY multivitamin Tablet 1 tab PO DAILY (DME) FreeStyle Carlos 2 Sensor Kit See Rx Instructions .ROUTE .MEDSUPPLY Qty: 6 2RF Rx Instructions: change every 14 days (DME) Dexcom G6 Suspect Artist Supervisor Misc See Rx Instructions .Route Qty: 1 0RF Rx Instructions: Check BS 4-6 times a day. (DME) Dexcom G6 Sensor Device See Rx Instructions .Route Qty: 3 3RF Rx Instructions: Change every 10 days. (DME) Dexcom G6 Transmitter Device See Rx Instructions .Route Qty: 1 3RF Rx Instructions: Change every 90 days. (DME) insulin syringe-needle U-100 1 mL 31 gauge x 5/16 syringe See Rx Instructions .ROUTE .COMPLEX Qty: 100 0RF Dose Instruction: USE DIRECTED DAILY Rx Instructions: USE DIRECTED DAILY ketoconazole 2 % cream 1 applic topical BID Qty: 30 6RF Rx Instructions: Apply to red, scaly areas on face 1-2 times daily ketoconazole 2 % shampoo 1 applic topical .2x weekly Qty: 120 6RF Rx Instructions: Lather into scalp 2-3 times weekly. Allow to sit on scalp for 5 minutes before rinsing. amlodipine 2.5 mg tablet 2.5 mg PO DAILY Qty: 30 0RF Lantus U-100 Insulin 100 unit/mL Solution 58 unit SUBCUT QAM Myrbetriq 50 mg Tablet Extended Release 24 Hr 50 mg PO DAILY Jardiance 25 mg Tablet 12.5 mg PO DAILY lisinopril 40 mg Tablet 20 mg PO DAILY Levemir U-100 Insulin 100 unit/mL solution 58 unit SUBCUT DAILY Discontinued enoxaparin [Lovenox] 100 mg/mL syringe 100 mg SUBCUT Q12H Qty: 4 0RF Rx Instructions: 12/07/23 One injection AM & PM 12/08/23 One injection AM & PM No Action gabapentin 100 mg capsule 100 mg PO TID Qty: 270 3RF Discharge Orders: Discharge Order (Routine); Ordered 12/10/23 Ordered By: Messi Anne Other Ambulatory Orders: Basic Metabolic Panel (Routine) Timeframe: 20231215 Facility: [facility] - Location: Lab - Main Lab Ordered By: Messi Anne Referrals: Massiel Zapata FNP [Nurse Practitioner] - 12/18/23 2:30 pm Gracie Burnham FNP [Primary Care Provider] - 12/17/23 1:30 pm Patient Instructions: Peripheral Artery Disease (DC), Heart Catheterization (DC), Chest Pain Stoplight, Opioid Safety, Post Angiogram Home Care Instructions Discharge Date/Time: 12/10/23 09:13 Discharge Attestations Time Spent in Discharge Care*: less than 30 min Quality Metrics Clinical Quality Measures [ No reported AMI, CVA or VTE this stay] Coding Level of Care Code Acute Code for [facility] Fwd Diagnoses Bilateral pulmonary embolism I26.99 DVT (deep venous thrombosis) I82.409 Hyperlipemia, mixed E78.2 PAD (peripheral artery disease) I73.9 Claudication I73.9
[2023-12-10 08:07] VITALS: BP 137/79; PULSE 112; RESP 18; TEMP 37.1; O2SAT 91
--- NOTE | 2023-12-10 09:15 | PC.NURSE ---
Patient and patient's daughter were very eager to be discharged and be out of here this morning. Patient's daughter complained that she hadn't seen a nurse all day even though it was 0857 and that they wanted to leave now. Patient stated that if he wasn't discharged immediately, he would pull everything out himself and leave. This nurse came to the nurses station and grabbed the discharge paperwork and went to the room and discussed discharge with patient. Daughter then pushed patient out via wheelchair to the main entrance.
== END 2023-12-10 09:13 | disposition home or self-care (01) ==
LOC: CSU 12-10 07:52 → OPCSU 12-10 08:06 → CSU 12-10 08:07
PROVIDERS: PCP Nurse Practitioner; Visit Provider Internal Medicine
DX: I70.203 Unspecified atherosclerosis of native arteries of extremities, bilateral legs (principal); I70.92 Chronic total occlusion of artery of the extremities; E78.2 Mixed hyperlipidemia; E11.22 Type 2 diabetes mellitus with diabetic chronic kidney disease; I12.9 Hypertensive chronic kidney disease with stage 1 through stage 4 chronic kidney disease, or unspecified chronic kidney disease; N18.9 Chronic kidney disease, unspecified; Z79.4 Long term (current) use of insulin; Z79.84 Long term (current) use of oral hypoglycemic drugs; Z79.01 Long term (current) use of anticoagulants; Z86.718 Personal history of other venous thrombosis and embolism
CPT/HCPCS: 36415; 36416; 75625; 75716; 80048; 80053; 82962; 85025; 96372; 96374; 96376; 99152; 99153; C1769; C1887; C1894; J0360; J1644; J1815; J2250; J3010; J7030; Q9967

== ENCOUNTER 2023-12-09 09:00 | Outpatient (CLI) | payer OTHER, SELFPAY | END 2023-12-09 09:01 | disposition home or self-care (01) | PROVIDERS: PCP Nurse Practitioner; Visit Provider Internal Medicine | DX: Z53.9 Procedure and treatment not carried out, unspecified reason (principal) | CPT/HCPCS: 75625; 75716; 99152; 99153; C1769; C1887; C1894; Q9967 ==

== ENCOUNTER → 2023-12-29 11:16 | Outpatient (BNVA) | payer OTHER, SELFPAY | PROVIDERS: PCP Nurse Practitioner; Visit Provider Internal Medicine | DX: E11.649 Type 2 diabetes mellitus with hypoglycemia without coma (principal); Z79.4 Long term (current) use of insulin; E11.319 Type 2 diabetes mellitus with unspecified diabetic retinopathy without macular edema; Z86.73 Personal history of transient ischemic attack (TIA), and cerebral infarction without residual deficits; I73.9 Peripheral vascular disease, unspecified; E11.40 Type 2 diabetes mellitus with diabetic neuropathy, unspecified; Z79.84 Long term (current) use of oral hypoglycemic drugs | CPT/HCPCS: 99214 ==

== ENCOUNTER → 2024-01-22 12:46 | Outpatient (BNVA) | payer OTHER, SELFPAY | PROVIDERS: PCP Nurse Practitioner; Visit Provider Nurse Practitioner Family | DX: I73.9 Peripheral vascular disease, unspecified (principal) | CPT/HCPCS: 36415; 80048; 99214 ==

== ENCOUNTER → 2025-01-07 08:34 | Outpatient (BNVA) | payer OTHER, SELFPAY | PROVIDERS: PCP Nurse Practitioner; Visit Provider Nurse Practitioner Family | DX: S80.921A Unspecified superficial injury of right lower leg, initial encounter (principal); X58.XXXA Exposure to other specified factors, initial encounter; L21.8 Other seborrheic dermatitis; D22.39 Melanocytic nevi of other parts of face; L81.4 Other melanin hyperpigmentation; L57.8 Other skin changes due to chronic exposure to nonionizing radiation; Z08 Encounter for follow-up examination after completed treatment for malignant neoplasm; L57.0 Actinic keratosis | CPT/HCPCS: 17000; 99214 ==